=== PATIENT | male | born 1940 | race Caucasian/White ===

== ENCOUNTER 2019-01-02 11:40 | Inpatient (IN) | payer MEDICARE, BC ==
[2019-01-02] MEDS ORDERED: SODIUM CHLORIDE 0.9% 1,000 ML IV STA (12:17)
--- NOTE | 2019-01-02 12:21 | ED ---
General Adult HPI - General Chief complaint: Syncope Stated complaint: Syncope Time Seen by Provider: 01/02/19 11:56 Source: patient, EMS, RN notes reviewed Mode of arrival: EMS Limitations: no limitations - History of Present Illness Initial comments: Patient is a pleasant 78-year-old male presenting to the emergency department following syncopal episode. Patient does not really recall the episode. Patient believes he had one episode yesterday and one today. Patient states he feels okay at this point and does not have any complaints. Patient is overall a poor historian and has difficulty providing significant history. Unclear if history of similar symptoms previously. He should denies chest or back pain. No abdominal pain. No dyspnea. No headache. Patient reported he does live on his own. - Related Data Home Medications Medication Instructions Recorded Confirmed Apixaban [Eliquis] 5 mg PO BID 01/02/19 01/02/19 Atorvastatin [Lipitor] 40 mg PO DAILY 01/02/19 01/02/19 Furosemide [Lasix] 40 mg PO DAILY 01/02/19 01/02/19 Lisinopril 40 mg PO DAILY 01/02/19 01/02/19 Magnesium/Calcium 1 tab PO DAILY 01/02/19 01/02/19 Metoprolol Tartrate [Lopressor] 25 mg PO BID 01/02/19 01/02/19 Potassium Chloride ER [K-Dur 10] 10 meq PO DAILY 01/02/19 01/02/19 Sertraline HCl [Zoloft] 25 mg PO DAILY 01/02/19 01/02/19 Tamsulosin [Flomax] 0.4 mg PO DAILY 01/02/19 01/02/19 hydrALAZINE HCL [Apresoline] 25 mg PO Q8H 01/02/19 01/02/19 Allergies Allergy/AdvReac Type Severity Reaction Status Date / Time No Known Allergies Allergy Verified 01/02/19 15:47 Review of Systems ROS Statement: Those systems with pertinent positive or pertinent negative responses have been documented in the HPI. ROS Other: All systems not noted in ROS Statement are negative. Constitutional: Denies: fever Eyes: Denies: eye pain ENT: Denies: ear pain Respiratory: Denies: cough, dyspnea Cardiovascular: Denies: chest pain Endocrine: Denies: fatigue Gastrointestinal: Denies: abdominal pain Genitourinary: Denies: dysuria Musculoskeletal: Denies: back pain Skin: Denies: rash Neurological: Denies: headache, weakness Past Medical History Past Medical History: Atrial Fibrillation, CVA/TIA, Hypertension History of Any Multi-Drug Resistant Organisms: None Reported Past Surgical History: Unable to Obtain Past Psychological History: No Psychological Hx Reported Smoking Status: Former smoker Past Alcohol Use History: None Reported Past Drug Use History: None Reported General Exam Limitations: no limitations General appearance: alert, in no apparent distress Head exam: Present: other (Mild ecchymosis without bony tenderness inferior orbital region. Mild ecchymosis and soft tissue swelling above the left ear.) Eye exam: Present: normal appearance, PERRL ENT exam: Present: normal oropharynx Neck exam: Present: normal inspection. Absent: tenderness Respiratory exam: Present: normal lung sounds bilaterally. Absent: chest wall tenderness Cardiovascular Exam: Present: regular rate, normal rhythm GI/Abdominal exam: Present: soft. Absent: distended, tenderness, pulsatile mass Extremities exam: Present: normal inspection, full ROM. Absent: tenderness Neurological exam: Present: alert, CN II-XII intact. Absent: motor sensory deficit Expanded Neurological exam: Present: protecting the airway Patient oriented to: Present: person, place. Absent: time Speech: Present: fluid speech Cranial nerves: EOM's Intact: Normal Motor strength exam: RUE: 5, LUE: 5, RLE: 5, LLE: 5 Eye Response: (4) open spontaneously Motor Response: (6) obeys commands Verbal Response: (4) confused conversation Psychiatric exam: Present: normal affect, normal mood Skin exam: Present: other (Ecchymotic areas) Course Vital Signs 01/02/19 01/02/19 01/02/19 11:45 11:46 12:00 Temperature 97 F L Pulse Rate 68 Respiratory 18 Rate Blood Pressure 198/115 198/115 O2 Sat by Pulse 99 95 96 Oximetry 01/02/19 01/02/19 01/02/19 13:00 13:30 15:34 Temperature Pulse Rate 79 79 Respiratory 26 H 18 Rate Blood Pressure 183/122 189/98 161/109 O2 Sat by Pulse 96 98 Oximetry - Reevaluation(s) Reevaluation #1: 01/02/19 15:41 Patient reevaluated and resting comfortably in bed. Additional history not available from sister. She states patient does have history of hypertension and atrial fibrillation. Patient is on Eliquis for that. 01/02/19 17:21 Patient was reevaluated multiple times. Multiple attempts at IV. Central line attempt is concerning secondary to patient being stable and Eliquis. We will attempt peripheral IV with ultrasound. 01/02/19 17:21 Case was discussed in detail with Dr. Flores, who will admit 01/02/19 17:23 Patient does not meet sepsis criteria EKG Findings - EKG Comments: EKG Findings:: Irregular no complex rhythm with a rate of 87. NH 126. QRS 98. QT 398. QTC 470. Normal axis. Septal Q waves. No acute ST change. Medical Decision Making - Lab Data Result diagrams: 01/02/19 13:41 01/02/19 13:41 Lab Results 01/02/19 01/02/19 01/02/19 Range/Units 13:41 13:41 13:41 WBC 8.6 (3.8-10.6) k/uL RBC 4.43 (4.30-5.90) m/uL Hgb 11.3 L (13.0-17.5) gm/dL Hct 37.2 L (39.0-53.0) % MCV 84.1 (80.0-100.0) fL MCH 25.5 (25.0-35.0) pg MCHC 30.3 L (31.0-37.0) g/dL RDW 15.5 (11.5-15.5) % Plt Count 183 (150-450) k/uL Neutrophils % 74 % Lymphocytes % 14 % Monocytes % 8 % Eosinophils % 1 % Basophils % 1 % Neutrophils # 6.3 (1.3-7.7) k/uL Lymphocytes # 1.2 (1.0-4.8) k/uL Monocytes # 0.6 (0-1.0) k/uL Eosinophils # 0.1 (0-0.7) k/uL Basophils # 0.1 (0-0.2) k/uL Hypochromasia Marked Poikilocytosis Slight PT 15.4 H (9.0-12.0) sec INR 1.5 H (<1.2) APTT 27.9 (22.0-30.0) sec Sodium 143 (137-145) mmol/L Potassium 4.0 (3.5-5.1) mmol/L Chloride 108 H (98-107) mmol/L Carbon Dioxide 23 (22-30) mmol/L Anion Gap 12 mmol/L BUN 31 H (9-20) mg/dL Creatinine 1.00 (0.66-1.25) mg/dL Est GFR (CKD-EPI)AfAm 83 (>60 ml/min/1.73 sqM) Est GFR (CKD-EPI)NonAf 72 (>60 ml/min/1.73 sqM) Glucose 98 (74-99) mg/dL Calcium 9.3 (8.4-10.2) mg/dL Magnesium 2.2 (1.6-2.3) mg/dL Total Bilirubin 1.2 (0.2-1.3) mg/dL AST 35 (17-59) U/L ALT 30 (21-72) U/L Alkaline Phosphatase 99 (38-126) U/L Troponin I (0.000-0.034) ng/mL Total Protein 7.1 (6.3-8.2) g/dL Albumin 4.0 (3.5-5.0) g/dL Urine Color Urine Appearance (Clear) Urine pH (5.0-8.0) Ur Specific [place] (1.001-1.035) Urine Protein (Negative) Urine Glucose (UA) (Negative) Urine Ketones (Negative) Urine Blood (Negative) Urine Nitrite (Negative) Urine Bilirubin (Negative) Urine Urobilinogen (<2.0) mg/dL Ur Leukocyte Esterase (Negative) Urine RBC (0-5) /hpf Urine WBC (0-5) /hpf Hyaline Casts (0-2) /lpf Urine Mucus (None) /hpf 01/02/19 01/02/19 Range/Units 13:41 15:03 WBC (3.8-10.6) k/uL RBC (4.30-5.90) m/uL Hgb (13.0-17.5) gm/dL Hct (39.0-53.0) % MCV (80.0-100.0) fL MCH (25.0-35.0) pg MCHC (31.0-37.0) g/dL RDW (11.5-15.5) % Plt Count (150-450) k/uL Neutrophils % % Lymphocytes % % Monocytes % % Eosinophils % % Basophils % % Neutrophils # (1.3-7.7) k/uL Lymphocytes # (1.0-4.8) k/uL Monocytes # (0-1.0) k/uL Eosinophils # (0-0.7) k/uL Basophils # (0-0.2) k/uL Hypochromasia Poikilocytosis PT (9.0-12.0) sec INR (<1.2) APTT (22.0-30.0) sec Sodium (137-145) mmol/L Potassium (3.5-5.1) mmol/L Chloride (98-107) mmol/L Carbon Dioxide (22-30) mmol/L Anion Gap mmol/L BUN (9-20) mg/dL Creatinine (0.66-1.25) mg/dL Est GFR (CKD-EPI)AfAm (>60 ml/min/1.73 sqM) Est GFR (CKD-EPI)NonAf (>60 ml/min/1.73 sqM) Glucose (74-99) mg/dL Calcium (8.4-10.2) mg/dL Magnesium (1.6-2.3) mg/dL Total Bilirubin (0.2-1.3) mg/dL AST (17-59) U/L ALT (21-72) U/L Alkaline Phosphatase (38-126) U/L Troponin I 0.021 (0.000-0.034) ng/mL Total Protein (6.3-8.2) g/dL Albumin (3.5-5.0) g/dL Urine Color Yellow Urine Appearance Clear (Clear) Urine pH 5.5 (5.0-8.0) Ur Specific [place] 1.019 (1.001-1.035) Urine Protein 1+ H (Negative) Urine Glucose (UA) Negative (Negative) Urine Ketones Negative (Negative) Urine Blood Negative (Negative) Urine Nitrite Negative (Negative) Urine Bilirubin Negative (Negative) Urine Urobilinogen <2.0 (<2.0) mg/dL Ur Leukocyte Esterase Trace H (Negative) Urine RBC 3 (0-5) /hpf Urine WBC 8 H (0-5) /hpf Hyaline Casts 71 H (0-2) /lpf Urine Mucus Few H (None) /hpf - Radiology Data Radiology results: report reviewed (Computed tomography scan the brain reveals no acute process. Computed tomography scan of the spine has some concern for pleural effusion.), image reviewed (Chest x-ray shows possible left lower lobe infiltrate) Disposition Clinical Impression: Syncope, Hypertension, Pneumonia Disposition: ADMITTED IP TO THIS HOSP Is patient prescribed a controlled substance at d/c from ED?: No Referrals: Yohannes Meza DO [Primary Care Provider] - 1-2 days
--- NOTE | 2019-01-02 13:22 | CT ---
EXAMINATION TYPE: CT brain radha chua DATE OF EXAM: 01/02/2019 COMPARISON: NONE HISTORY: Fall CT DLP: 1307.8 mGycm Automated exposure control for dose reduction was used. TECHNIQUE: CT scan of the head and cervical spine are performed without contrast. FINDINGS: BRAIN: There are generalized changes of sulcal prominence and ventriculomegaly, compatible with atrop hic change. There is diffuse periventricular white matter lucency, compatible with chronic white nohemy er ischemic change. There are been bilateral occipital infarcts. There is no acute focal lesion, mass effect or midline shift. I do not see evidence of intracranial blood. There is chronic mucoperiosteal thickening involving the maxillary and ethmoidal sinuses bilaterally. The mastoid air cells are clear. The bony calvarium is intact. IMPRESSION: 1. NO ACUTE INTRACRANIAL ABNORMALITY. 2. BILATERAL OCCIPITAL INFARCTS WHICH ARE OLD. 3. ATROPHIC CHANGE. 4. CHRONIC WHITE MATTER ISCHEMIC CHANGE. 5. ETHMOIDAL AND MAXILLARY SINUS MUCOSAL DISEASE. THERE ARE BILATERAL PLEURAL EFFUSIONS. VISUALIZED P ORTIONS OF THE LUNGS ARE CLEAR. PREVERTEBRAL SOFT TISSUES ARE NORMAL. THERE IS A MILD REVERSAL OF THE NORMAL CERVICAL LORDOSIS. ALIGNMENT IS NORMAL. ATLANTOAXIAL RELATIONS HIPS ARE NORMAL. 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 THERE IS DI FFUSE UNCOVERTEBRAL JOINT DISEASE. THERE IS FACET ARTHROPATHY ON THE LEFT AT C2-3 AND TO A LESSER EXT ENT BILATERALLY AT C3-4 AND C4-5 WELL C5-6 AND ON THE LEFT AND C6-7. NO DEFINITE PROTRUSION IS SEEN. NO FRACTURE IS IDENTIFIED. CERVICAL SPINE:Cervical spine is visualized in its entirety from C1 through upper thoracic levels and demonstrates satisfactory alignment without evidence of acute fracture or dislocation. Prevertebral soft tissue appears within normal limits. The C1-C2 articulation is unremarkable. IMPRESSION: 1. NO ACUTE OSSEOUS LESION. 2. MODERATE DEGENERATIVE CHANGE. 3. BILATERAL PLEURAL EFFUSIONS, GREATER ON THE RIGHT THAN THE LEFT.
[2019-01-02 14:10] LABS: Basophils # (A) 0.1 k/uL (0-0.2); Basophils % (A) 1 %; Eosinophils # (A) 0.1 k/uL (0-0.7); Eosinophils % (A) 1 %; HCT 37.2 % (39.0-53.0); HGB 11.3 gm/dL (13.0-17.5); Hypochromasia Marked; INR 1.5 (<1.2); Lymphocytes # (A) 1.2 k/uL (1.0-4.8); Lymphocytes % (A) 14 %; MCH 25.5 pg (25.0-35.0); MCHC 30.3 g/dL (31.0-37.0); MCV 84.1 fL (80.0-100.0); Mean Platelet Volume 6.4; Monocytes # (A) 0.6 k/uL (0-1.0); Monocytes % (A) 8 %; Neutrophils # (A) 6.3 k/uL (1.3-7.7); Neutrophils % (A) 74 %; Partial Thromboplastin Time 27.9 sec (22.0-30.0); Platelet Count 183 k/uL (150-450); Poikilocytosis Slight; Prothrombin Time 15.4 sec (9.0-12.0); RBC 4.43 m/uL (4.30-5.90); RDW 15.5 % (11.5-15.5); WBC 8.6 k/uL (3.8-10.6)
[2019-01-02 14:13] LABS: Calcium 9.3 mg/dL (8.4-10.2); Magnesium 2.2 mg/dL (1.6-2.3); Total Bilirubin 1.2 mg/dL (0.2-1.3); Total Protein 7.1 g/dL (6.3-8.2)
--- NOTE | 2019-01-02 14:27 | XR ---
EXAMINATION TYPE: XR chest 2V DATE OF EXAM: 01/02/2019 COMPARISON: 04/14/2012 HISTORY: Fall. Nausea and vomiting TECHNIQUE: Frontal and lateral views of the chest are obtained. FINDINGS: Heart is enlarged. There is some blunting of the posterior costophrenic angles. There is a irspace infiltrate left lower lobe. There is no gross heart failure. There is old right clavicle heal ed fracture. IMPRESSION: Small pleural effusions. There is new left lower lobe pneumonia compared to old exam. No obvious heart failure.
[2019-01-02 15:21] LABS: Appearance,Urine Clear (Clear); Bilirubin,Urine Negative (Negative); Blood,Urine Negative (Negative); Color,Urine Yellow; Glucose,Urine (UA) Negative (Negative); Hyaline Casts,Urine 71 /lpf (0-2); Ketones,Urine Negative (Negative); Leukocyte Esterase,Urine Trace (Negative); Mucus,Urine Few /hpf; Nitrite,Urine Negative (Negative); PH, Urine 5.5 (5.0-8.0); Protein,Urine 1+ (Negative); RBC,Urine 3 /hpf (0-5); Specific Gravity,Urine 1.019 (1.001-1.035); Urobilinogen,Urine <2.0 mg/dL (<2.0); WBC,Urine 8 /hpf (0-5)
[2019-01-02] MEDS ORDERED: FUROSEMIDE 40 MG TAB PO STA (15:40)
[2019-01-02] MEDS ORDERED: cloNIDine HCL 0.1 MG TAB PO STA (15:41)
[2019-01-02] MEDS ORDERED: PNEUMONIA PROTOCOL UTILIZED 1 EACH MISC PO PRN (17:23)
[2019-01-02] MEDS ORDERED: AZITHROMYCIN 500 MG in SODIUM CHLORIDE 0.9% 250 ML IVPB STA (17:23)
[2019-01-02] MEDS ORDERED: NALOXONE 0.4 MG/ML 1 ML VIAL IV PRN (17:23)
[2019-01-02] MEDS ORDERED: FUROSEMIDE 40 MG TAB PO SCH (17:30)
[2019-01-02] MEDS: SODIUM CHLORIDE 0.9% 1,000 ML IV SCH (18:11)
[2019-01-02] MEDS: ENALAPRILAT 1.25 MG/ML 1 ML VIAL IVP PRN (18:43)
--- NOTE | 2019-01-02 18:59 | P.HPIM ---
History of Present Illness H&P Date: 01/02/19 Chief Complaint: Syncope Patient is a 78-year-old male with a known history of chronic atrial fibrillation on anticoagulation with a liquid is, COPD, hypertension, history of CVA 2 recently in 2019, history of carotid endarterectomy, currently at home by himself was brought to the hospital due to syncopal episode. According to his , patient was found on the floor twice, last night and this morning. Apparently patient has been on the floor for few hours. Patient denied any complaints of head injury or pain currently. Patient is somewhat poor historian. Denied any fever or chills. No cough is from production. No recent illnesses. Patient's is his caregiver. Denied any nausea vomiting or abdominal pain. No headache or dizziness or lightheadedness. Blood pressure 198/115 HR 68 on admission. Chest x-ray showed small pleural effusions. There is new left lower lobe pneumonia compared to oral exam. No obvious heart failure. EKG showed atrial fibrillation with controlled heart rate CT head showed no acute intracranial abnormality. Bilateral occipital infarcts which are old. Atrophic change. Chronic white matter ischemic change. Ethmoid and maxillary sinus mucosal disease. There are bilateral pleural effusions. Visualized portions of the lungs are clear. CT cervical spine showed no acute osseous lesion. Moderate degenerative change. Bilateral pleural effusions, greater on the right Review of Systems Constitutional: Patient denies any fever or chills . No generalized weakness or weight loss. Abdomen: Patient denied nausea vomiting and diarrhea and abdominal pain. Cardiovascular: Patient denies any chest pain or short of breath no palpitations. Respiratory: patient denied any cough is from production. No shortness of breath Neurologic: Patient denied any numbness or tingling headache. Musculoskeletal: Patient denies any complaints of joint swelling or deformity. Complete review of systems could not be obtained from the patient. Past Medical History Past Medical History: Atrial Fibrillation, CVA/TIA, Hypertension History of Any Multi-Drug Resistant Organisms: None Reported Past Surgical History: Unable to Obtain Past Psychological History: No Psychological Hx Reported Smoking Status: Former smoker Past Alcohol Use History: None Reported Past Drug Use History: None Reported Medications and Allergies Home Medications Medication Instructions Recorded Confirmed Type Apixaban [Eliquis] 5 mg PO BID 01/02/19 01/02/19 History Atorvastatin [Lipitor] 40 mg PO DAILY 01/02/19 01/02/19 History Furosemide [Lasix] 40 mg PO DAILY 01/02/19 01/02/19 History Lisinopril 40 mg PO DAILY 01/02/19 01/02/19 History Magnesium/Calcium 1 tab PO DAILY 01/02/19 01/02/19 History Metoprolol Tartrate [Lopressor] 25 mg PO BID 01/02/19 01/02/19 History Potassium Chloride ER [K-Dur 10] 10 meq PO DAILY 01/02/19 01/02/19 History Sertraline HCl [Zoloft] 25 mg PO DAILY 01/02/19 01/02/19 History Tamsulosin [Flomax] 0.4 mg PO DAILY 01/02/19 01/02/19 History hydrALAZINE HCL [Apresoline] 25 mg PO Q8H 01/02/19 01/02/19 History Allergies Allergy/AdvReac Type Severity Reaction Status Date / Time No Known Allergies Allergy Verified 01/02/19 15:47 Physical Exam Vitals: Vital Signs Temp Pulse Resp BP Pulse Ox 01/02/19 18:19 70 18 185/109 98 01/02/19 17:00 70 19 173/126 96 01/02/19 16:00 76 25 H 201/103 99 01/02/19 15:34 79 18 161/109 98 01/02/19 13:30 79 26 H 189/98 96 01/02/19 13:00 183/122 01/02/19 12:00 198/115 96 01/02/19 11:46 97 F L 68 18 198/115 95 01/02/19 11:45 99 Intake and Output 01/02/19 01/02/19 01/02/19 06:59 14:59 22:59 Other: Weight 79.379 kg PHYSICAL EXAMINATION: Patient is lying in the bed comfortably, no acute distress, awake alert and oriented. Mildly confused. HEENT: Normocephalic. Neck is supple. Pupils reactive. Nostrils clear. Oral cavity is moist. Ears reveal no drainage. Neck reveals no JVD, carotid bruits, or thyromegaly. CHEST EXAMINATION: Trachea is central. Symmetrical expansion. Bibasilar diminished air entry and crackles. No wheezing. CARDIAC: Normal S1, S2 with no gallops. Systolic murmur. Irregularly irregular rhythm. ABDOMEN: Soft. Bowel sounds normal. No organomegaly. No abdominal bruits. Extremities: 3+ bilateral pitting edema. No clubbing or cyanosis Neurologically awake, alert, oriented x2-3. Able to move extremities while in bed.. Mild cognitive impairment. Skin: No rash or skin lesions. Psychiatric: Coperative. Nonsuicidal Musculoskeletal: No joint swelling or deformity. Normal range of motion. Results CBC & Chem 7: 01/02/19 13:41 01/02/19 13:41 Labs: Abnormal Lab Results - Last 24 Hours (Table) 01/02/19 01/02/19 01/02/19 Range/Units 13:41 13:41 13:41 Hgb 11.3 L (13.0-17.5) gm/dL Hct 37.2 L (39.0-53.0) % MCHC 30.3 L (31.0-37.0) g/dL PT 15.4 H (9.0-12.0) sec INR 1.5 H (<1.2) Chloride 108 H (98-107) mmol/L BUN 31 H (9-20) mg/dL Urine Protein (Negative) Ur Leukocyte Esterase (Negative) Urine WBC (0-5) /hpf Hyaline Casts (0-2) /lpf Urine Mucus (None) /hpf 01/02/19 Range/Units 15:03 Hgb (13.0-17.5) gm/dL Hct (39.0-53.0) % MCHC (31.0-37.0) g/dL PT (9.0-12.0) sec INR (<1.2) Chloride (98-107) mmol/L BUN (9-20) mg/dL Urine Protein 1+ H (Negative) Ur Leukocyte Esterase Trace H (Negative) Urine WBC 8 H (0-5) /hpf Hyaline Casts 71 H (0-2) /lpf Urine Mucus Few H (None) /hpf Thrombosis Risk Factor Assmnt - DVT/VTE Prophylaxis DVT/VTE Prophylaxis: Pharmacologic Prophylaxis ordered Assessment and Plan Assessment: Acute syncopal episode. Patient was found on the floor. Likely due to infection, uncontrolled HTN versus arrhythmia. Acute left lower lobe pneumonia Acute on chronic CHF. Ejection fraction unknown. Chronic atrial fibrillation on anticoagulation with eliquis. Hypertensive urgency on admission History of recent CVA 2 in 2019 COPD stable Previous history of smoking Plan: Patient will be continued on antibiotics in the form of ceftriaxone and azithromycin. We will repeat chest x-ray tomorrow. Obtain BNP and CPK level. Continue with IV diuresis with Lasix 40 mg twice daily. Monitor renal function. Continue with telemetry monitoring. Initial troponin negative. Cardiology will be consulted. Continue with home medications including metoprolol, lisinopril and hydralazine and statins. PTOT and further recommendations based on the clinical course. Prognosis is guarded. Time with Patient: Greater than 30
[2019-01-02] MEDS: LISINOPRIL 20 MG TAB PO SCH (20:20)
[2019-01-02] MEDS: FUROSEMIDE 10 MG/ML 4 ML VIAL IV SCH (20:20)
[2019-01-02] MEDS: APIXABAN 5 MG TAB PO SCH (20:20)
[2019-01-02] MEDS: hydrALAZINE HCL 25 MG TAB PO SCH (20:20)
[2019-01-02] MEDS: METOPROLOL TARTRATE 25 MG TAB PO SCH (20:20)
[2019-01-03] MEDS: hydrALAZINE HCL 25 MG TAB PO SCH ×4 (01:37→23:11)
[2019-01-03] MEDS: ENALAPRILAT 1.25 MG/ML 1 ML VIAL IVP PRN (03:06)
[2019-01-03 06:30] LABS: Basophils % (A) 0 %; Eosinophils # (A) 0.1 k/uL (0-0.7); Eosinophils % (A) 1 %; HGB 10.1 gm/dL (13.0-17.5); Hypochromasia Marked; Lymphocytes # (A) 1.3 k/uL (1.0-4.8); Lymphocytes % (A) 12 %; MCH 25.6 pg (25.0-35.0); MCHC 31.5 g/dL (31.0-37.0); MCV 81.5 fL (80.0-100.0); Mean Platelet Volume 6.7; Monocytes # (A) 0.7 k/uL (0-1.0); Monocytes % (A) 7 %; Neutrophils # (A) 8.2 k/uL (1.3-7.7); Neutrophils % (A) 78 %; Platelet Count 188 k/uL (150-450); Poikilocytosis Slight; RBC 3.93 m/uL (4.30-5.90); RDW 15.7 % (11.5-15.5); WBC 10.5 k/uL (3.8-10.6)
[2019-01-03 06:45] LABS: African American GFR (CKD) >90 (>60 ml/min/1.73 sqM); Anion Gap 8 mmol/L; Blood Urea Nitrogen 29 mg/dL (9-20); Calcium 8.8 mg/dL (8.4-10.2); Carbon Dioxide 25 mmol/L (22-30); Chloride 108 mmol/L (98-107); Glucose 87 mg/dL (74-99); Non-African American GFR(CKD) 81 (>60 ml/min/1.73 sqM); Potassium 3.3 mmol/L (3.5-5.1); Sodium 141 mmol/L (137-145)
[2019-01-03] MEDS ORDERED: POTASSIUM CHLORIDE ER 20 MEQ TAB.ER PO STA (08:37)
--- NOTE | 2019-01-03 08:42 | XR ---
EXAMINATION TYPE: XR chest 1V portable DATE OF EXAM: 01/03/2019 COMPARISON: Prior chest x-ray 01/02/2019 HISTORY: Congestive heart failure TECHNIQUE: Single frontal view of the chest is obtained. FINDINGS: The heart is enlarged. Interstitium and central vascularity are prominent. No pneumothorax . There is basilar increased density with partially obscured right hemidiaphragm. Aorta is dense. The re are overlying cardiac leads. Patient is rotated. IMPRESSION: Correlate for congestive heart failure, interstitial edema, pneumonia, possible effusion
[2019-01-03] MEDS: APIXABAN 5 MG TAB PO SCH ×2 (09:10→19:28)
[2019-01-03] MEDS: TAMSULOSIN 0.4 MG CAP.ER.24H PO SCH (09:10)
[2019-01-03] MEDS: METOPROLOL TARTRATE 25 MG TAB PO SCH (09:10)
[2019-01-03] MEDS: FUROSEMIDE 10 MG/ML 4 ML VIAL IV SCH ×2 (09:17→19:28)
[2019-01-03] MEDS ORDERED: Potassium Replacement Protocol 1 EACH MISC MISCELLANE PRN (10:08)
--- NOTE | 2019-01-03 12:17 | P.CRDCN ---
History of Present Illness Consult date: 01/03/19 Requesting physician: Angeline Fox Consult reason: sycope, congestive heart failure Chief complaint: Syncope History of present illness: This is a 78-year-old gentleman, most of the history was obtained from the medical record, as the patient is confused this morning. According to d ocumentation from [facility] office, the patient follows with Dr. 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 He does have history of recurrent strokes, persistent atrial fibrillation, hypertension, hyperlipidemia, family history of premature coronary artery disease, nicotine dependence, severe pulmonary hypertension, presented to the emergency room following a syncopal episode. Blood pressure on arrival her e was significantly elevated at 198/115. Patient does not recall the episode, therefore no exact details on how it happened. He does have evidence of ecchymosis on his face as well as his right hand. A CAT scan of the head and cervical spine does not reveal any acute intracranial abnormality. Shows bilateral subdural infarcts which are old, atrophic change, chronic white matter ischemic change, ethmoid all and maxillary sinus mucosal disease. Bilateral pleural effusions. Chest x-ray on presentation here showed small pleural effusions. There is a new left lower lobe pneumonia as compared with prior exam. EKG shows atrial fibrillation with controlled ventricular response, occasional PVC. Subsequent EKG performed this morning shows congestive heart failure, interstitial edema, pneumonia and possible effusion. Blood pressure 174/90, heart rate 80, 100% on 2 L of oxygen. White blood cell count 10.5, hemoglobin 10.1, platelet count 188. Sodium 141, potassium 3.3, BUN 29 and creatinine 0.9. Troponins 0.021, 0.04, 0.031. BNP level 24,600. 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 ATTENDING: DR CODY History of Any Multi-Drug Resistant Organisms: None Reported Past Surgical History: Unable to Obtain Additional Past Surgical History / Comment(s): LEFT CAROTID SURGERY- PER SISTER, JESSICA Past Psychological History: No Psychological Hx Reported Smoking Status: Former smoker Past Alcohol Use History: None Reported Past Drug Use History: None Reported Medications and Allergies Home Medications Medication Instructions Recorded Confirmed Type Apixaban [Eliquis] 5 mg PO BID 01/02/19 01/02/19 History Atorvastatin [Lipitor] 40 mg PO DAILY 01/02/19 01/02/19 History Furosemide [Lasix] 40 mg PO DAILY 01/02/19 01/02/19 History Lisinopril 40 mg PO DAILY 01/02/19 01/02/19 History Magnesium/Calcium 1 tab PO DAILY 01/02/19 01/02/19 History Metoprolol Tartrate [Lopressor] 25 mg PO BID 01/02/19 01/02/19 History Potassium Chloride ER [K-Dur 10] 10 meq PO DAILY 01/02/19 01/02/19 History Sertraline HCl [Zoloft] 25 mg PO DAILY 01/02/19 01/02/19 History Tamsulosin [Flomax] 0.4 mg PO DAILY 01/02/19 01/02/19 History hydrALAZINE HCL [Apresoline] 25 mg PO Q8H 01/02/19 01/02/19 History Allergies Allergy/AdvReac Type Severity Reaction Status Date / Time No Known Allergies Allergy Verified 01/02/19 15:47 Physical Exam Vitals: Vital Signs Temp Pulse Pulse Pulse Resp BP BP 01/03/19 08:00 98.2 F 81 20 174/94 01/03/19 03:31 76 17 175/86 01/03/19 00:00 97.7 F 61 17 01/02/19 20:00 97.5 F L 63 16 01/02/19 19:17 76 18 193/95 01/02/19 18:50 72 18 178/96 01/02/19 18:19 70 18 185/109 01/02/19 17:00 70 19 173/126 01/02/19 16:00 76 25 H 201/103 01/02/19 15:34 79 18 161/109 01/02/19 13:30 79 26 H 189/98 01/02/19 13:00 183/122 01/02/19 12:00 198/115 01/02/19 11:46 97 F L 68 18 198/115 01/02/19 11:45 BP Pulse Ox 01/03/19 08:00 100 01/03/19 03:31 100 01/03/19 00:00 135/63 100 01/02/19 20:00 180/97 99 01/02/19 19:17 98 01/02/19 18:50 98 01/02/19 18:19 98 01/02/19 17:00 96 01/02/19 16:00 99 01/02/19 15:34 98 01/02/19 13:30 96 01/02/19 13:00 01/02/19 12:00 96 01/02/19 11:46 95 01/02/19 11:45 99 Intake and Output 01/02/19 01/03/19 01/03/19 22:59 06:59 14:59 Intake Total 50 Output Total 100 100 Balance -100 -100 50 Intake: IV 50 cefTRIAXone 1 gm In 50 Sodium Chloride 0.9% 50 ml @ 100 mls/hr IVPB ONCE STA Rx#:[id number] Output: Urine 100 100 Other: Voiding Method Incontinent # Voids 2 1 # Bowel Movements 1 Weight 83 kg PHYSICAL EXAMINATION: GENERAL: 78-year-old gentleman in no acute distress at the time of my examination HEENT: Head is atraumatic, normocephalic. Some ecchymosis noted beneath the left eye. Pupils equal, round. Sclera anicteric. Conjunctiva are clear. Muc ous membranes of the mouth are moist. Neck is supple. There is no elevated jugular venous pressure. No carotid bruit is heard. HEART EXAMINATION: Heart S1-S2 irregularly irregular a systolic murmur is heard CHEST EXAMINATION: Lungs reveal fine rales to bilateral bases with diminished. She to the bases bilaterally. ABDOMEN: Soft, nontender. Bowel sounds are heard. No organomegaly noted. EXTREMITIES: 2+ peripheral pulses with 1+ evidence of peripheral edema and no calf tenderness noted. Ecchymosis noted on the right hand NEUROLOGIC patient is awake, alert and oriented 1 . . Results 01/03/19 05:25 01/03/19 05:16 Cardiac Enzymes 01/02/19 01/02/19 01/02/19 Range/Units 13:41 13:41 19:23 AST 35 (17-59) U/L Troponin I 0.021 0.024 (0.000-0.034) ng/mL 01/03/19 Range/Units 01:59 AST (17-59) U/L Troponin I 0.031 (0.000-0.034) ng/mL Coagulation 01/02/19 Range/Units 13:41 PT 15.4 H (9.0-12.0) sec APTT 27.9 (22.0-30.0) sec CBC 01/02/19 01/03/19 Range/Units 13:41 05:25 WBC 8.6 10.5 (3.8-10.6) k/uL RBC 4.43 3.93 L (4.30-5.90) m/uL Hgb 11.3 L 10.1 L (13.0-17.5) gm/dL Hct 37.2 L 32.0 L (39.0-53.0) % Plt Count 183 188 (150-450) k/uL Comprehensive Metabolic Panel 01/02/19 01/03/19 Range/Units 13:41 05:16 Sodium 143 141 (137-145) mmol/L Potassium 4.0 3.3 L (3.5-5.1) mmol/L Chloride 108 H 108 H (98-107) mmol/L Carbon Dioxide 23 25 (22-30) mmol/L BUN 31 H 29 H (9-20) mg/dL Creatinine 1.00 0.91 (0.66-1.25) mg/dL Glucose 98 87 (74-99) mg/dL Calcium 9.3 8.8 (8.4-10.2) mg/dL AST 35 (17-59) U/L ALT 30 (21-72) U/L Alkaline Phosphatase 99 (38-126) U/L Total Protein 7.1 (6.3-8.2) g/dL Albumin 4.0 (3.5-5.0) g/dL Current Medications Generic Name Dose Route Start Last Admin Trade Name Freq PRN Reason Stop Dose Admin Apixaban 5 mg 01/02/19 21:00 01/03/19 09:10 Eliquis PO 5 mg BID MIKY Administration Atorvastatin Calcium 40 mg 01/03/19 09:00 Lipitor PO DAILY MIKY Azithromycin 500 mg 01/03/19 12:00 Zithromax PO DAILY MIKY Enalaprilat 1.25 mg 01/02/19 17:27 01/03/19 03:06 Vasotec IVP 1.25 mg Q4HR PRN Administration Blood Pressure - High Furosemide 40 mg 01/02/19 21:00 01/03/19 09:17 Lasix IV 40 mg Q12HR MIKY Administration Hydralazine HCl 25 mg 01/02/19 18:00 01/03/19 09:10 Apresoline PO 25 mg Q8HR MIKY Administration Sodium Chloride 1,000 mls @ 20 mls/hr 01/02/19 17:30 01/02/19 18:11 Saline 0.9% IV 20 mls/hr .Q24H MIKY Administration Ceftriaxone Sodium 1 gm/ 50 mls @ 100 mls/hr 01/03/19 09:00 01/03/19 09:17 Sodium Chloride IVPB 01/06/19 09:01 100 mls/hr Q24HR MIKY Administration Lisinopril 40 mg 01/02/19 17:30 01/02/19 20:20 Zestril PO 40 mg DAILY MIKY Administration Metoprolol Tartrate 25 mg 01/02/19 21:00 01/03/19 09:10 Lopressor PO 25 mg BID MIKY Administration Miscellaneous Information 1 each 01/02/19 17:23 Pneumonia Protocol Utilized PO ONCE PRN Per Protocol Miscellaneous Information 1 each 01/03/19 10:08 Potassium Per Protocol MISCELLANE DAILY PRN Per Protocol Protocol Naloxone HCl 0.2 mg 01/02/19 17:23 Narcan IV Q2M PRN Opioid Reversal Potassium Chloride 10 meq 01/03/19 09:00 K-Dur 10 PO DAILY MIKY Sertraline HCl 25 mg 01/03/19 09:00 Zoloft PO DAILY MIKY Tamsulosin HCl 0.4 mg 01/03/19 09:00 01/03/19 09:10 Flomax PO 0.4 mg DAILY MIKY Administration Intake and Output 01/02/19 01/03/19 01/03/19 22:59 06:59 14:59 Intake Total 50 Output Total 100 100 Balance -100 -100 50 Intake: IV 50 cefTRIAXone 1 gm In 50 Sodium Chloride 0.9% 50 ml @ 100 mls/hr IVPB ONCE STA Rx#:[id number] Output: Urine 100 100 Other: Voiding Method Incontinent # Voids 2 1 # Bowel Movements 1 Weight 83 kg 01/03/19 05:25 01/03/19 05:16 EKG Interpretations (text) EKG shows atrial fibrillation with a controlled ventricular response, occasional PVC Assessment and Plan Plan: Assessment and plan #1 syncope, rule out cardiac causes #2 congestive heart failure, systolic acute on chronic. Patient underwent an echocardiogram with Doppler study in August of this year at [facility] which showed an ejection fraction of 40-45%. #3 chronic persistent atrial fibrillation on Eliquis for anticoagulation #4 hypertensive urgency on admission, blood pressure was 198/115 #5 history of hypertension #6 hyperlipidemia #7 prior CVAs #8 possible acute left lower lobe pneumonia Plan We will repeat an echocardiogram with Doppler study. Check orthostatic heart rate and blood pressure every shift and continue to monitor for any significant tachycardia or bradycardia arrhythmias. Continue Lipitor, IV Lasix, hydra lazine, lisinopril, increase metoprolol to 50 mg by mouth twice a day, further recommendations to follow. DNP note has been reviewed, I agree with a documented findings and plan of care. Patient was seen and examined.
[2019-01-03] MEDS: LISINOPRIL 20 MG TAB PO SCH (12:48)
[2019-01-03] MEDS: ATORVASTATIN 40 MG TAB PO SCH (12:48)
[2019-01-03] MEDS: SERTRALINE 25 MG TAB PO SCH (12:48)
[2019-01-03] MEDS: POTASSIUM CHLORIDE ER 10 MEQ TAB.ER.PRT PO SCH (12:48)
[2019-01-03] MEDS: AZITHROMYCIN 500 MG TAB PO SCH (12:49)
[2019-01-03] MEDS ORDERED: POTASSIUM CHLORIDE ER 20 MEQ TAB.ER PO SCH (17:00)
--- NOTE | 2019-01-03 17:04 | P.PN ---
Subjective Progress Note Date: 01/03/19 Principal diagnosis: Patient is a 78-year-old male with a known history of chronic atrial fibrillation on anticoagulation with a liquid is, COPD, hypertension, history of CVA 2 recently in 2019, history of carotid endarterectomy, currently at home by himself was brought to the hospital due to syncopal episode. According to his , patient was found on the floor twice, last night and this morning. Apparently patient has been on the floor for few hours. Patient denied any complaints of head injury or pain currently. Patient is somewhat poor historian. Denied any fever or chills. No cough is from production. No recent illnesses. Patient's is his caregiver. Denied any nausea vomiting or abdominal pain. No headache or dizziness or lightheadedness. Blood pressure 198/115 HR 68 on admission. Chest x-ray showed small pleural effusions. There is new left lower lobe pneumonia compared to oral exam. No obvious heart failure. EKG showed atrial fibrillation with controlled heart rate CT head showed no acute intracranial abnormality. Bilateral occipital infarcts which are old. Atrophic change. Chronic white matter ischemic change. Ethmoid and maxillary sinus mucosal disease. There are bilateral pleural effusions. Visualized portions of the lungs are clear. CT cervical spine showed no acute osseous lesion. Moderate degenerative change. Bilateral pleural effusions, greater on the right 01/03/2019 Patient is sitting up in the chair sleeping and somewhat arousable. Patient answers questions with yes and no but doesn't remain awake enough to have a conversation. No acute overnight issues. Per nursing staff this is his baseline. Potassium today was 3.3 and was replaced with a repeat potassium 3.6. Will continue to monitor closely. Cardiology is following and patient is to undergo an echo that is currently pending at this time. Will await report. Speech pathology is following as well and recommending a modified barium swallow that she will do in the morning. Case management and pediatric social worker following for possible placement upon discharge. Guarded prognosis. Objective - Vital Signs Vital signs: Vital Signs Temp 97.7 F 01/03/19 12:00 Pulse 65 01/03/19 12:00 Resp 20 01/03/19 12:00 BP 156/76 01/03/19 12:00 Pulse Ox 99 01/03/19 12:00 Intake & Output 01/02/19 01/03/19 01/03/19 18:59 06:59 18:59 Intake Total 286 Output Total 200 Balance -200 286 Weight 79.379 kg 83 kg Intake: IV 50 cefTRIAXone 1 gm In 50 Sodium Chloride 0.9% 50 ml @ 100 mls/hr IVPB ONCE STA Rx#:[id number] Oral 236 Output: Urine 200 Other: Voiding Method Incontinent # Voids 2 1 # Bowel Movements 1 - Exam Patient is lying in the chair comfortably, no acute distress, asleep but arousable, alert and oriented x1-2. Mildly confused. HEENT: Normocephalic. Neck is supple. Pupils reactive. Nostrils clear. Oral cavity is moist. Ears reveal no drainage. Neck reveals no JVD, carotid bruits, or thyromegaly. CHEST EXAMINATION: Trachea is central. Symmetrical expansion. Bibasilar diminished air entry and crackles. No wheezing. CARDIAC: Normal S1, S2 with no gallops. Systolic murmur. Irregularly irregular rhythm. ABDOMEN: Soft. Bowel sounds normal. No organomegaly. No abdominal bruits. Extremities: 3+ bilateral pitting edema. No clubbing or cyanosis Neurologically awake, alert, oriented x2-3. Able to move extremities while in bed.. Mild cognitive impairment. Skin: No rash or skin lesions. Psychiatric: Cooperative. Non-suicidal Musculoskeletal: No joint swelling or deformity. Normal range of motion. - Labs CBC & Chem 7: 01/03/19 05:25 01/03/19 15:49 Labs: Abnormal Lab Results - Last 24 Hours (Table) 01/02/19 01/02/19 01/03/19 Range/Units 15:03 19:23 05:16 RBC (4.30-5.90) m/uL Hgb (13.0-17.5) gm/dL Hct (39.0-53.0) % RDW (11.5-15.5) % Neutrophils # (1.3-7.7) k/uL Potassium 3.3 L (3.5-5.1) mmol/L Chloride 108 H (98-107) mmol/L BUN 29 H (9-20) mg/dL Creatine Kinase 29 L (55-170) U/L Urine Protein 1+ H (Negative) Ur Leukocyte Esterase Trace H (Negative) Urine WBC 8 H (0-5) /hpf Hyaline Casts 71 H (0-2) /lpf Urine Mucus Few H (None) /hpf 01/03/19 Range/Units 05:25 RBC 3.93 L (4.30-5.90) m/uL Hgb 10.1 L (13.0-17.5) gm/dL Hct 32.0 L (39.0-53.0) % RDW 15.7 H (11.5-15.5) % Neutrophils # 8.2 H (1.3-7.7) k/uL Potassium (3.5-5.1) mmol/L Chloride (98-107) mmol/L BUN (9-20) mg/dL Creatine Kinase (55-170) U/L Urine Protein (Negative) Ur Leukocyte Esterase (Negative) Urine WBC (0-5) /hpf Hyaline Casts (0-2) /lpf Urine Mucus (None) /hpf Assessment and Plan Assessment: Acute syncopal episode. Patient was found on the floor. Likely due to infection, uncontrolled HTN versus arrhythmia. Acute left lower lobe pneumonia Acute on chronic CHF. Ejection fraction unknown. Chronic atrial fibrillation on anticoagulation with eliquis. Hypertensive urgency on admission History of recent CVA 2 in 2019 COPD stable Previous history of smoking Plan: Patient will be continued on antibiotics in the form of ceftriaxone and azithromycin. Repeat chest x-ray today shows an enlarged heart, interstitial and central vascularity are prominent and to correlate for congestive heart failure, interstitial edema, pneumonia, possible effusion. We'll continue with IV Lasix at this time and repeat a.m. labs. Creatinine today is 0.91 . Potassium was replaced today and is currently 3.6. Awaiting cardiology consult. PT/OT following and appreciate recommendations for discharge planning. Further recommendations to follow. Prognosis is guarded.
[2019-01-03] MEDS: SODIUM CHLORIDE 0.9% 1,000 ML IV SCH (17:23)
[2019-01-03] MEDS: METOPROLOL TARTRATE 50 MG TAB PO SCH (19:28)
[2019-01-04] MEDS: POTASSIUM CHLORIDE ER 20 MEQ TAB.ER PO SCH ×2 (06:35→08:13)
[2019-01-04] MEDS: FUROSEMIDE 10 MG/ML 4 ML VIAL IV SCH ×2 (08:13→22:43)
[2019-01-04] MEDS: APIXABAN 5 MG TAB PO SCH ×2 (08:13→22:26)
[2019-01-04] MEDS: SERTRALINE 25 MG TAB PO SCH (08:13)
[2019-01-04] MEDS: AZITHROMYCIN 500 MG TAB PO SCH (08:13)
[2019-01-04] MEDS: METOPROLOL TARTRATE 50 MG TAB PO SCH ×2 (08:13→22:26)
[2019-01-04] MEDS: POTASSIUM CHLORIDE ER 10 MEQ TAB.ER.PRT PO SCH (08:13)
[2019-01-04] MEDS: TAMSULOSIN 0.4 MG CAP.ER.24H PO SCH (08:14)
[2019-01-04] MEDS: LISINOPRIL 20 MG TAB PO SCH (08:14)
[2019-01-04] MEDS: hydrALAZINE HCL 25 MG TAB PO SCH ×2 (08:14→16:36)
[2019-01-04] MEDS: ATORVASTATIN 40 MG TAB PO SCH (08:14)
[2019-01-04] MEDS ORDERED: POTASSIUM CHLORIDE ER 20 MEQ TAB.ER PO STA (09:04)
--- NOTE | 2019-01-04 11:31 | ECHOF ---
Referral Reason:syncope MEASUREMENTS -------- HEIGHT: 172.7 cm WEIGHT: 82.6 kg BP: 174/94 RVIDd: 3.1 cm (< 3.3) IVSd: 1.1 cm (0.6 - 1.1) LVIDd: 4.9 cm (3.9 - 5.3) LVPWd: 1.2 cm (0.6 - 1.1) IVSs: 1.5 cm LVIDs: 4.2 cm LVPWs: 1.0 cm LAESV Index (A-L): 61.25 ml/m Ao Diam: 2.7 cm (2.0 - 3.7) AV Cusp: 1.7 cm (1.5 - 2.6) LA Diam: 4.9 cm (2.7 - 3.8) MV EXCURSION: 17.701 mm (> 18.000) MV EF SLOPE: 36 mm/s (70 - 150) EPSS: 1.2 cm AR PHT: 441 ms RAP: 5.00 mmHg RVSP: 64.89 mmHg TAPSE: 13.64 mm FINDINGS -------- Atrial fibrillation. This was a technically good study. The left ventricular size is normal. There is mild concentric left ventricular hypertrophy. Overa ll left ventricular systolic function is moderate-severely impaired with, an EF between 30 - 35 %. Left ventricular fillimg pressure cannot be estimated due to Atrial fibrillation. The right ventricle is normal in size. The right ventricular systolic function is mildly impaired. LA is severely dilated >40 ml/m2 The right atrium is mildly enlarged. Interatrial and interventricular septum intact. Aortic valve is trileaflet and is mildly thickened. There is mild aortic valve sclerosis. There i s mild aortic regurgitation. The mitral valve is normal. The mitral valve leaflets are mildly thickened. Mild mitral annular c alcification present. Moderate mitral regurgitation is present. The tricuspid valve appears structurally normal. Severe tricuspid regurgitation present. There is moderate to severe pulmonary hypertension. The right ventricular systolic pressure, as measured by Doppler, is 64.89mmHg. There is no pulmonic regurgitation present. The aortic root size is normal. IVC Not well visulized. There is a trivial pericardial effusion present. Large Pleural Effusion. CONCLUSIONS -------- 1. Atrial fibrillation. 2. This was a technically good study. 3. The left ventricular size is normal. 4. There is mild concentric left ventricular hypertrophy. 5. Overall left ventricular systolic function is moderate-severely impaired with, an EF between 30 - 35 %. 6. Left ventricular fillimg pressure cannot be estimated due to Atrial fibrillation. 7. The right ventricle is normal in size. 8. The right ventricular systolic function is mildly impaired. 9. LA is severely dilated >40 ml/m2 10. The right atrium is mildly enlarged. 11. Interatrial and interventricular septum intact. 12. Aortic valve is trileaflet and is mildly thickened. 13. There is mild aortic valve sclerosis. 14. There is mild aortic regurgitation. 15. The mitral valve is normal. 16. The mitral valve leaflets are mildly thickened. 17. Mild mitral annular calcification present. 18. Moderate mitral regurgitation is present. 19. The tricuspid valve appears structurally normal. 20. Severe tricuspid regurgitation present. 21. There is moderate to severe pulmonary hypertension. 22. The right ventricular systolic pressure, as measured by Doppler, is 64.89mmHg. 23. There is no pulmonic regurgitation present. 24. The aortic root size is normal. 25. IVC Not well visulized. 26. There is a trivial pericardial effusion present. 27. Large Pleural Effusion. HEALTH AND SAFETY COORDINATOR: Carla Kellogg RDCS
--- NOTE | 2019-01-04 12:40 | FL ---
Modified barium swallow. HISTORY: Rule out aspiration Modified barium swallow was performed with the department of speech pathology. The patient was prese nted with various consistencies of barium. There is no evidence for aspiration. Minimal penetration noted with thin liquid barium. Vallecular an d piriform sinus residuals noted. Full report is to follow from the department of speech pathology. Impression: No evidence for aspiration.
--- NOTE | 2019-01-04 15:22 | P.PN ---
Subjective Progress Note Date: 01/04/19 This is a 78-year-old gentleman, most of the history was obtained from the medical record, as the patient is confused this morning. 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 He does have history of recurrent strokes, persistent atrial fibrillation, hypertension, hyperlipidemia, family history of premature coronary artery disease, nicotine dependence, severe pulmonary hypertension, presented to the emergency room following a syncopal episode. Blood pressure on arrival here was significantly elevated at 198/115. Patient does not recall the episode, therefore no exact details on how it happened. He does have evidence of ecchymosis on his face as well as his right hand. A CAT scan of the head and cervical spine does not reveal any acute intracranial abnormality. Shows bilateral subdural infarcts which are old, atrophic change, chronic white matter ischemic change, ethmoid all and maxillary sinus mucosal disease. Bilateral pleural effusions. Chest x-ray on presentation here showed small pleural effusions. There is a new left lower lobe pneumonia as compared with prior exam. EKG shows atrial fibrillation with controlled ventricular response, occasional PVC. Subsequent EKG performed this morning shows congestive heart failure, interstitial edema, pneumonia and possible effusion. Blood pressure 174/90, heart rate 80, 100% on 2 L of oxygen. White blood cell count 10.5, hemoglobin 10.1, platelet count 188. Sodium 141, potassium 3.3, BUN 29 and creatinine 0.9. Troponins 0.021, 0.04, 0.031. BNP level 24,600. 01/04/2019 Patient was seen and examined today, sitting up in bed, no complaints. Echo cardiogram with Doppler study revealed an ejection fraction of 30-35%. Severe tricuspid regurg, moderate to severe pulmonary hypertension. Underwent a swallow test today that did not show any evidence of aspiration. Blood pressure improved today, 132/60 with a heart rate in the 70s, 95% on room air. Potassium is 3.4 today which we will replace. Objective - Vital Signs Vital signs: Vital Signs Temp 98.2 F 01/04/19 12:00 Pulse 76 01/04/19 12:00 Resp 18 01/04/19 12:00 BP 133/62 01/04/19 12:00 Pulse Ox 95 01/04/19 12:00 Intake & Output 01/03/19 01/04/1901/04/19 18:59 06:59 18:59 Intake Total 486 Balance 486 Weight 81.5 kg Intake: IV 50 cefTRIAXone 1 gm In 50 Sodium Chloride 0.9% 50 ml @ 100 mls/hr IVPB ONCE STA Rx#:[id number] Oral 436 Other: Voiding Method Incontinent Incontinent Incontinent # Voids 1 2 # Bowel Movements 1 - Exam PHYSICAL EXAMINATION: GENERAL: 78-year-old gentleman in no acute distress at the time of my examination HEENT: Head is atraumatic, normocephalic. Some ecchymosis noted beneath the left eye. Pupils equal, round. Sclera anicteric. Conjunctiva are clear. Mucous membranes of the mouth are moist. Neck is supple. There is no elevated jugular venous pressure. No carotid bruit is heard. HEART EXAMINATION: Heart S1-S2 irregularly irregular a systolic murmur is heard CHEST EXAMINATION: Lungs reveal fine rales to bilateral bases with diminished. air entry to the bases bilaterally. ABDOMEN: Soft, nontender. Bowel sounds are heard. No organomegaly noted. EXTREMITIES: 2+ peripheral pulses with 1+ evidence of peripheral edema and no calf tenderness noted. Ecchymosis noted on the right hand NEUROLOGIC patient is awake, alert and oriented 1 . - Labs CBC & Chem 7: 01/03/19 05:25 01/04/19 05:44 Labs: Abnormal Lab Results - Last 24 Hours (Table) 01/04/19 Range/Units 05:44 Potassium 3.4 L (3.5-5.1) mmol/L Microbiology - Last 24 Hours (Table) 01/02/19 18:00 Blood Culture - Preliminary Blood No Growth after 24 hours Assessment and Plan Plan: Assessment and plan #1 syncope, rule out cardiac causes #2 congestive heart failure, systolic acute on chronic. Patient underwent an echocardiogram with Doppler study in August of this year at [facility] which showed an ejection fraction of 40-45%. #3 chronic persistent atrial fibrillation on Eliquis for anticoagulation #4 hypertensive urgency on admission, blood pressure was 198/115 #5 history of hypertension #6 hyperlipidemia #7 prior CVAs #8 possible acute left lower lobe pneumonia Plan Echocardiogram with Doppler study revealed an ejection fraction of 30-35%. We will add Aldactone to the patient's medication regime, continue current dose of IV Lasix. Repeat a chest x-ray in the morning. DNP note has been reviewed, I agree with a documented findings and plan of care. Patient was seen and examined.
[2019-01-04] MEDS: SPIRONOLACTONE 25 MG TAB PO SCH (16:36)
[2019-01-04] MEDS: SODIUM CHLORIDE 0.9% 1,000 ML IV SCH (16:38)
--- NOTE | 2019-01-04 20:27 | P.PN ---
Subjective Progress Note Date: 01/04/19 Principal diagnosis: Patient is a 78-year-old male with a known history of chronic atrial fibrillation on anticoagulation with a liquid is, COPD, hypertension, history of CVA 2 recently in 2019, history of carotid endarterectomy, currently at home by himself was brought to the hospital due to syncopal episode. According to his , patient was found on the floor twice, last night and this morning. Apparently patient has been on the floor for few hours. Patient denied any complaints of head injury or pain currently. Patient is somewhat poor historian. Denied any fever or chills. No cough is from production. No recent illnesses. Patient's is his caregiver. Denied any nausea vomiting or abdominal pain. No headache or dizziness or lightheadedness. Blood pressure 198/115 HR 68 on admission. Chest x-ray showed small pleural effusions. There is new left lower lobe pneumonia compared to oral exam. No obvious heart failure. EKG showed atrial fibrillation with controlled heart rate CT head showed no acute intracranial abnormality. Bilateral occipital infarcts which are old. Atrophic change. Chronic white matter ischemic change. Ethmoid and maxillary sinus mucosal disease. There are bilateral pleural effusions. Visualized portions of the lungs are clear. CT cervical spine showed no acute osseous lesion. Moderate degenerative change. Bilateral pleural effusions, greater on the right 01/03/2019 Patient is sitting up in the chair sleeping and somewhat arousable. Patient answers questions with yes and no but doesn't remain awake enough to have a conversation. No acute overnight issues. Per nursing staff this is his baseline. Potassium today was 3.3 and was replaced with a repeat potassium 3.6. Will continue to monitor closely. Cardiology is following and patient is to undergo an echo that is currently pending at this time. Will await report. Speech pathology is following as well and recommending a modified barium swallow that she will do in the morning. Case management and administrator social welfare following for possible placement upon discharge. Guarded prognosis. 01/04/2019 Patient sitting up in bed in no acute distress. Patient is more awake and alert today. Patient underwent a modified barium swallow today showing no evidence for aspiration. Cardiology is following. No acute overnight issues. Patient recent echo shows an EF of 30-35% with moderate to severely impaired left ventricular systolic function with a large pleural effusion. Patient is currently maintained on IV lasix at this time. Aldactone will be added to medications. Patient potassium was 3.3 today and being replaced. Will continue to monitor closely and repeat am labs. Case management and social work are following for possible placement at [facility] once discharged. Objective - Vital Signs Vital signs: Vital Signs Temp 98.2 F 01/04/19 12:00 Pulse 76 01/04/19 12:00 Resp 18 01/04/19 12:00 BP 133/62 01/04/19 12:00 Pulse Ox 95 01/04/19 12:00 Intake & Output 01/03/19 01/04/19 01/04/19 18:59 06:59 18:59 Intake Total 486 Balance 486 Weight 81.5 kg Intake: IV 50 cefTRIAXone 1 gm In 50 Sodium Chloride 0.9% 50 ml @ 100 mls/hr IVPB ONCE STA Rx#:[id number] Oral 436 Other: Voiding Method Incontinent Incontinent Incontinent # Voids 1 2 # Bowel Movements 1 - Exam Patient is sitting in the bed comfortably, no acute distress, alert and oriented x1-2. Mildly confused. HEENT: Normocephalic. Neck is supple. Pupils reactive. Nostrils clear. Oral cavity is moist. Ears reveal no drainage. Neck reveals no JVD, carotid bruits, or thyromegaly. CHEST EXAMINATION: Trachea is central. Symmetrical expansion. Bibasilar diminished air entry and crackles. No wheezing. CARDIAC: Normal S1, S2 with no gallops. Systolic murmur. Irregularly irregular rhythm. ABDOMEN: Soft. Bowel sounds normal. No organomegaly. No abdominal bruits. Extremities: 3+ bilateral pitting edema. No clubbing or cyanosis Neurologically awake, alert, oriented x2-3. Able to move extremities while in bed.. Mild cognitive impairment. Skin: No rash or skin lesions. Psychiatric: Cooperative. Non-suicidal Musculoskeletal: No joint swelling or deformity. Normal range of motion. - Labs CBC & Chem 7: 01/03/19 05:25 01/04/19 05:44 Labs: Abnormal Lab Results - Last 24 Hours (Table) 01/04/19 Range/Units 05:44 Potassium 3.4 L (3.5-5.1) mmol/L Microbiology - Last 24 Hours (Table) 01/02/19 18:00 Blood Culture - Preliminary Blood No Growth after 24 hours Assessment and Plan Assessment: Acute syncopal episode. Patient was found on the floor. Likely due to infection, uncontrolled HTN versus arrhythmia. Acute left lower lobe pneumonia Acute on chronic CHF. Ejection fraction is 30-35% Chronic atrial fibrillation on anticoagulation with eliquis. Hypertensive urgency on admission History of recent CVA 2 in 2019 COPD stable Previous history of smoking Plan: Patient will be continued on antibiotics in the form of azithromycin and rocephin was discontinued. Cardiology is following. We'll continue with IV Lasix at this time and repeat a.m. labs. PT/OT following and appreciate rec ommendations for discharge planning. Case management and social work are following for possible placement at [facility] upon discharge. Further recommendations to follow. Prognosis is guarded.
[2019-01-05] MEDS: hydrALAZINE HCL 25 MG TAB PO SCH ×2 (00:42→09:00)
[2019-01-05 07:28] LABS: Anisocytosis Slight; Basophils % (A) 0 %; Eosinophils # (A) 0.3 k/uL (0-0.7); Eosinophils % (A) 3 %; HCT 34.4 % (39.0-53.0); HGB 10.5 gm/dL (13.0-17.5); Hypochromasia Marked; Lymphocytes # (A) 1.5 k/uL (1.0-4.8); Lymphocytes % (A) 15 %; MCH 24.9 pg (25.0-35.0); MCHC 30.6 g/dL (31.0-37.0); MCV 81.6 fL (80.0-100.0); Monocytes # (A) 0.8 k/uL (0-1.0); Monocytes % (A) 8 %; Neutrophils # (A) 6.8 k/uL (1.3-7.7); Neutrophils % (A) 71 %; Platelet Count 174 k/uL (150-450); Poikilocytosis Slight; RBC 4.21 m/uL (4.30-5.90); RDW 16.3 % (11.5-15.5); WBC 9.6 k/uL (3.8-10.6)
[2019-01-05 07:56] LABS: Calcium 8.8 mg/dL (8.4-10.2); Potassium 3.8 mmol/L (3.5-5.1)
[2019-01-05] MEDS: POTASSIUM CHLORIDE ER 10 MEQ TAB.ER.PRT PO SCH (09:00)
[2019-01-05] MEDS: AZITHROMYCIN 500 MG TAB PO SCH (09:00)
[2019-01-05] MEDS: SPIRONOLACTONE 25 MG TAB PO SCH (09:01)
[2019-01-05] MEDS: FUROSEMIDE 10 MG/ML 4 ML VIAL IV SCH ×2 (09:01→21:59)
[2019-01-05] MEDS: APIXABAN 5 MG TAB PO SCH ×2 (09:01→21:59)
[2019-01-05] MEDS: ATORVASTATIN 40 MG TAB PO SCH (09:01)
[2019-01-05] MEDS: LISINOPRIL 20 MG TAB PO SCH (09:01)
[2019-01-05] MEDS: TAMSULOSIN 0.4 MG CAP.ER.24H PO SCH (09:01)
[2019-01-05] MEDS: METOPROLOL TARTRATE 50 MG TAB PO SCH (09:01)
[2019-01-05] MEDS: SERTRALINE 25 MG TAB PO SCH (09:49)
[2019-01-05] MEDS ORDERED: hydrALAZINE HCL 25 MG TAB PO STA (10:24)
--- NOTE | 2019-01-05 13:17 | P.PN ---
Subjective Progress Note Date: 01/05/19 Principal diagnosis: Patient is a 78-year-old male with a known history of chronic atrial fibrillation on anticoagulation with a liquid is, COPD, hypertension, history of CVA 2 recently in 2019, history of carotid endarterectomy, currently at home by himself was brought to the hospital due to syncopal episode. According to his , patient was found on the floor twice, last night and this morning. Apparently patient has been on the floor for few hours. Patient denied any complaints of head injury or pain currently. Patient is somewhat poor historian. Denied any fever or chills. No cough is from production. No recent illnesses. Patient's is his caregiver. Denied any nausea vomiting or abdominal pain. No headache or dizziness or lightheadedness. Blood pressure 198/115 HR 68 on admission. Chest x-ray showed small pleural effusions. There is new left lower lobe pneumonia compared to oral exam. No obvious heart failure. EKG showed atrial fibrillation with controlled heart rate CT head showed no acute intracranial abnormality. Bilateral occipital infarcts which are old. Atrophic change. Chronic white matter ischemic change. Ethmoid and maxillary sinus mucosal disease. There are bilateral pleural effusions. Visualized portions of the lungs are clear. CT cervical spine showed no acute osseous lesion. Moderate degenerative change. Bilateral pleural effusions, greater on the right 01/03/2019 Patient is sitting up in the chair sleeping and somewhat arousable. Patient answers questions with yes and no but doesn't remain awake enough to have a conversation. No acute overnight issues. Per nursing staff this is his baseline. Potassium today was 3.3 and was replaced with a repeat potassium 3.6. Will continue to monitor closely. Cardiology is following and patient is to undergo an echo that is currently pending at this time. Will await report. Speech pathology is following as well and recommending a modified barium swallow that she will do in the morning. Case management and social organization professor following for possible placement upon discharge. Guarded prognosis. 01/04/2019 Patient sitting up in bed in no acute distress. Patient is more awake and alert today. Patient underwent a modified barium swallow today showing no evidence for aspiration. Cardiology is following. No acute overnight issues. Patient recent echo shows an EF of 30-35% with moderate to severely impaired left ventricular systolic function with a large pleural effusion. Patient is currently maintained on IV lasix at this time. Aldactone will be added to medications. Patient potassium was 3.3 today and being replaced. Will continue to monitor closely and repeat am labs. Case management and social work are following for possible placement at [facility] once discharged. 01/05/2019 Patient is sitting up in bed in no acute distress with no acute overnight issues. Cardiology is following. Patient is awake and alert and responding to questions and commands and remains pleasantly confused. Patient is currently oxygenating well on room air and will continue to monitor vital signs closely. Patient is maintained on IV Lasix and will continue at this time. Aldactone was added yesterday and tolerating well. Repeat potassium today is 3.8, creatinine is 1.00. Currently patient denies any chest pain, shortness of breath, or palpitations. Patient is afebrile. Patient denies any nausea or vomiting and is tolerating diet. Objective - Vital Signs Vital signs: Vital Signs Temp 97.3 F L 01/05/19 05:00 Pulse 63 01/05/19 05:00 Resp 16 01/05/19 05:00 BP 181/87 01/05/19 05:00 Pulse Ox 97 01/05/19 05:00 Intake & Output 01/04/19 01/05/19 01/05/19 18:59 06:59 18:59 Intake Total 360 590 Balance 360 590 Intake: Oral 360 590 Other: Voiding Method Incontinent Diaper Diaper Incontinent Incontinent # Voids 1 - Exam Patient is sitting in the bed comfortably, no acute distress, alert and oriented x2. Mildly confused. HEENT: Normocephalic. Neck is supple. Pupils reactive. Nostrils clear. Oral cavity is moist. Ears reveal no drainage. Small contusion noted to the left eric ek from a previous fall Neck reveals no JVD, carotid bruits, or thyromegaly. CHEST EXAMINATION: Trachea is central. Symmetrical expansion. Bibasilar diminished air entry and mild crackles. No wheezing. CARDIAC: Normal S1, S2 with no gallops. Systolic murmur. Irregularly irregular rhythm. ABDOMEN: Soft. Bowel sounds normal. No organomegaly. No abdominal bruits. Extremities: 1+ bilateral pitting edema. No clubbing or cyanosis Neurologically awake, alert, oriented x2-3. Able to move extremities while in bed.. Mild cognitive impairment. Skin: No rash or skin lesions. Psychiatric: Cooperative. Non-suicidal Musculoskeletal: No joint swelling or deformity. Normal range of motion. - Labs CBC & Chem 7: 01/05/19 07:07 01/05/19 07:07 Labs: Abnormal Lab Results - Last 24 Hours (Table) 01/05/19 01/05/19 Range/Units 07:07 07:07 RBC 4.21 L (4.30-5.90) m/uL Hgb 10.5 L (13.0-17.5) gm/dL Hct 34.4 L (39.0-53.0) % MCH 24.9 L (25.0-35.0) pg MCHC 30.6 L (31.0-37.0) g/dL RDW 16.3 H (11.5-15.5) % BUN 35 H (9-20) mg/dL Glucose 101 H (74-99) mg/dL Microbiology - Last 24 Hours (Table) 01/02/19 18:00 Blood Culture - Preliminary Blood No Growth after 48 hours Assessment and Plan Assessment: Acute syncopal episode. Patient was found on the floor. Likely due to infection, uncontrolled HTN versus arrhythmia. Acute left lower lobe pneumonia Acute on chronic CHF. Ejection fraction is 30-35% Chronic atrial fibrillation on anticoagulation with eliquis. Hypertensive urgency on admission History of recent CVA 2 in 2019 COPD stable Previous history of smoking Recommendations and discussion: Recommend continue current medications, management, and symptomatic treatment. Cardiology is following. Patient is maintained on IV Lasix and will continue at this time. Patient is diuresing well. Repeat potassium today is 3.8. Case management and social organization professor following for assistance with placement at the [facility] once discharged. Further recommendations to follow. Philip acosta prognosis. Possible discharge in 24-48 hours.
--- NOTE | 2019-01-05 13:39 | P.PN ---
Subjective This is a pleasant 78-year-old male past medical history significant for hypertension, peripheral vascular disease s/p left carotid endartectomy, chronic persistent atrial fibrillation, dyslipidemia, pulmonary hypertension and chronic systolic heart failure and CVA in the past. He follows with Dr. Crenshaw. Currently maintained on lasix 40 mg IV BID, Eliquis 5 mg twice a day, atorvastatin 40 mg daily, hydralazine 25 mg 3 times a day, lisinopril 40 mg daily, metoprolol 50 mg twice a day, Aldactone 25 mg daily. Blood pressure 181/87 heart rate 63 afebrile maintaining oxygen saturation on room air. Laboratory data reviewed, WBC 9.6, hemoglobin 10.5, platelets 174, sodium 144, potassium 3.8, creatinine 1.0. He is seen and examined resting comfortably in bed in no acute distress. He continues to feel short of breath however appears comfortable. He denies symptoms of chest discomfort, dizziness or palpitations. Repeat chest xray this morning is pending. Telemetry tracings indicate bradycardia an intermittent less than 2 second pauses. GENERAL: Well-appearing, well-nourished and in no acute distress. NECK: Supple without JVD or thyromegaly. LUNGS: Bibasilar rales, no wheezes or rhonchi. Respiration equal and unlabored. HEART: Irregular rate and rhythm with systolic ejection murmur at the left sternal border, no rubs or gallops. S1 and S2 heard. EXTREMITIES: Normal range of motion, no edema. No clubbing or cyanosis. Peripheral pulses intact. ASSESSMENT Syncope Acute on chronic systolic heart failure Chronic persistent atrial fibrillation on long-term anticoagulation Hypertensive urgency Dyslipidemia History of CVA Pulmonary hypertension PLAN Decrease lopressor to 25 mg BID. Increase hydralazine to 50 mg TID, given additional 25 mg now. Continue IV diuresis. Follow renal function and electrolytes in the morning. Nurse Practitioner note has been reviewed, I agree with a documented findings and plan of care. Patient was seen and examined. Objective - Vital Signs Vital signs: Vital Signs Temp 97.3 F L 01/05/19 05:00 Pulse 63 01/05/19 05:00 Resp 16 01/05/19 05:00 BP 181/87 01/05/19 05:00 Pulse Ox 97 01/05/19 05:00 Intake & Output 01/04/19 01/05/1901/05/19 18:59 06:59 18:59 Intake Total 360 590 Balance 360 590 Intake: Oral 360 590 Other: Voiding Method Incontinent Diaper Diaper Incontinent Incontinent # Voids 1 - Labs CBC & Chem 7: 01/05/19 07:07 01/05/19 07:07 Labs: Abnormal Lab Results - Last 24 Hours (Table) 01/05/19 01/05/19 Range/Units 07:07 07:07 RBC 4.21 L (4.30-5.90) m/uL Hgb 10.5 L (13.0-17.5) gm/dL Hct 34.4 L (39.0-53.0) % MCH 24.9 L (25.0-35.0) pg MCHC 30.6 L (31.0-37.0) g/dL RDW 16.3 H (11.5-15.5) % BUN 35 H (9-20) mg/dL Glucose 101 H (74-99) mg/dL Microbiology - Last 24 Hours (Table) 01/02/19 18:00 Blood Culture - Preliminary Blood No Growth after 48 hours
--- NOTE | 2019-01-05 14:15 | XR ---
EXAMINATION TYPE: XR chest 2V DATE OF EXAM: 01/05/2019 COMPARISON: 01/03/2019 TECHNIQUE: PA and lateral views submitted. HISTORY: Shortness of breath FINDINGS: Persistent bilateral consolidation and pleural effusion with interstitial pattern. Chronic right clav icle fracture. No pneumothorax. Atherosclerotic change aorta. Hypertrophic and degenerative change of the spine. IMPRESSION: 1. Bilateral infiltrate and pleural effusion correlate for mild CHF which may be slightly improved co mpared to the prior exam. Underlying pneumonia not excluded.
[2019-01-05] MEDS: hydrALAZINE HCL 50 MG TAB PO SCH ×2 (16:57→21:59)
[2019-01-05] MEDS: METOPROLOL TARTRATE 25 MG TAB PO SCH (21:59)
[2019-01-06] MEDS: FUROSEMIDE 10 MG/ML 4 ML VIAL IV SCH (08:39)
[2019-01-06 08:51] LABS: African American GFR (CKD) >90 (>60 ml/min/1.73 sqM); Anion Gap 8 mmol/L; Blood Urea Nitrogen 34 mg/dL (9-20); Calcium 8.7 mg/dL (8.4-10.2); Carbon Dioxide 29 mmol/L (22-30); Chloride 105 mmol/L (98-107); Glucose 91 mg/dL (74-99); Non-African American GFR(CKD) 83 (>60 ml/min/1.73 sqM); Potassium 3.4 mmol/L (3.5-5.1); Sodium 142 mmol/L (137-145)
[2019-01-06] MEDS ORDERED: POTASSIUM CHLORIDE ER 20 MEQ TAB.ER PO STA (08:52)
[2019-01-06] MEDS: APIXABAN 5 MG TAB PO SCH ×2 (08:53→21:57)
[2019-01-06] MEDS: AZITHROMYCIN 500 MG TAB PO SCH (08:53)
[2019-01-06] MEDS: ATORVASTATIN 40 MG TAB PO SCH (08:53)
[2019-01-06] MEDS: LISINOPRIL 20 MG TAB PO SCH (08:53)
[2019-01-06] MEDS: hydrALAZINE HCL 50 MG TAB PO SCH (08:53)
[2019-01-06] MEDS: SPIRONOLACTONE 25 MG TAB PO SCH (08:54)
[2019-01-06] MEDS: SERTRALINE 25 MG TAB PO SCH (08:54)
[2019-01-06] MEDS: TAMSULOSIN 0.4 MG CAP.ER.24H PO SCH (08:54)
[2019-01-06] MEDS: POTASSIUM CHLORIDE ER 10 MEQ TAB.ER.PRT PO SCH (08:54)
[2019-01-06] MEDS: METOPROLOL TARTRATE 25 MG TAB PO SCH ×2 (09:29→21:57)
[2019-01-06] MEDS ORDERED: hydrALAZINE HCL 25 MG TAB PO STA (10:54)
--- NOTE | 2019-01-06 13:15 | P.PN ---
Subjective This is a pleasant 78-year-old male past medical history significant for hypertension, peripheral vascular disease s/p left carotid endartectomy, chronic persistent atrial fibrillation, dyslipidemia, pulmonary hypertension and chronic systolic heart failure and CVA in the past. He follows with Dr. Crenshaw. Currently maintained on lasix 40 mg IV BID, Eliquis 5 mg twice a day, atorvastatin 40 mg daily, hydralazine 50 mg 3 times a day, lisinopril 40 mg daily, metoprolol 25 mg twice a day, Aldactone 25 mg daily. Blood pressure 186/91 heart rate 55 afebrile and maintaining oxygen saturation on room air. He is seen and examined sitting up in the bed with his sister visiting. Overall he states he feels like he is improving since admission, but not back to baseline entirely. Repeat chest xray yesterday afternoon revealed slight improvement in pleural effusions. Laboratory data reviewed, sodium 142, potassium 3.4, creatinine 0.87. Weight is down from 83 kg on admisison to 78.5 this morning. No output documentation secondary to incontinence. Ongoing less than 2 second pauses noted on telemetry. GENERAL: Well-appearing, well-nourished and in no acute distress. NECK: Supple without JVD or thyromegaly. LUNGS: Bibasilar rales minimal and improved from yesterday, no wheezes or rhonchi. Respiration equal and unlabored. HEART: Irregular rate and rhythm with systolic ejection murmur at the left sternal border, no rubs or gallops. S1 and S2 heard. EXTREMITIES: Normal range of motion, no edema. No clubbing or cyanosis. Peripheral pulses intact. ASSESSMENT Syncope Acute on chronic systolic heart failure Chronic persistent atrial fibrillation on long-term anticoagulation Hypertensive urgency Dyslipidemia History of CVA Pulmonary hypertension PLAN Transition to oral diuretics, lasix 60 in the morning and 40 at bedtime. Increase hydralazine to 75 mg TID for blood pressure control. Additional dose of 25 mg now. Repeat chest xray and BMP in the morning. Will apply event monitor on discharge. Expect he can be discharged in the next 24-48 hours. Nurse Practitioner note has been reviewed, I agree with a documented findings and plan of care. Patient was seen and examined. Objective - Vital Signs Vital signs: Vital Signs Temp 96.6 F L 01/06/19 12:15 Pulse 63 01/06/19 12:15 Resp 18 01/06/19 12:15 BP 159/74 01/06/19 12:15 Pulse Ox 99 01/06/19 12:15 Intake & Output 01/05/19 01/06/19 01/06/19 18:59 06:59 18:59 Intake Total 100 Balance 100 Weight 79.8 kg 78.5 kg Intake: Oral 100 Other: Voiding Method Diaper Toilet Toilet Incontinent Diaper Diaper Incontinent # Voids 1 1 # Bowel Movements 1 1 - Labs CBC & Chem 7: 01/05/19 07:07 01/06/19 07:42 Labs: Abnormal Lab Results - Last 24 Hours (Table) 01/06/19 Range/Units 07:42 Potassium 3.4 L (3.5-5.1) mmol/L BUN 34 H (9-20) mg/dL Microbiology - Last 24 Hours (Table) 01/02/19 18:00 Blood Culture - Preliminary Blood No Growth after 72 hours
--- NOTE | 2019-01-06 15:26 | P.PN ---
Subjective Progress Note Date: 01/06/19 Principal diagnosis: Patient is a 78-year-old male with a known history of chronic atrial fibrillation on anticoagulation with a liquid is, COPD, hypertension, history of CVA 2 recently in 2019, history of carotid endarterectomy, currently at home by himself was brought to the hospital due to syncopal episode. According to his , patient was found on the floor twice, last night and this morning. Apparently patient has been on the floor for few hours. Patient denied any complaints of head injury or pain currently. Patient is somewhat poor historian. Denied any fever or chills. No cough is from production. No recent illnesses. Patient's is his caregiver. Denied any nausea vomiting or abdominal pain. No headache or dizziness or lightheadedness. Blood pressure 198/115 HR 68 on admission. Chest x-ray showed small pleural effusions. There is new left lower lobe pneumonia compared to oral exam. No obvious heart failure. EKG showed atrial fibrillation with controlled heart rate CT head showed no acute intracranial abnormality. Bilateral occipital infarcts which are old. Atrophic change. Chronic white matter ischemic change. Ethmoid and maxillary sinus mucosal disease. There are bilateral pleural effusions. Visualized portions of the lungs are clear. CT cervical spine showed no acute osseous lesion. Moderate degenerative change. Bilateral pleural effusions, greater on the right 01/03/2019 Patient is sitting up in the chair sleeping and somewhat arousable. Patient answers questions with yes and no but doesn't remain awake enough to have a conversation. No acute overnight issues. Per nursing staff this is his baseline. Potassium today was 3.3 and was replaced with a repeat potassium 3.6. Will continue to monitor closely. Cardiology is following and patient is to undergo an echo that is currently pending at this time. Will await report. Speech pathology is following as well and recommending a modified barium swallow that she will do in the morning. Case management and long term care social worker following for possible placement upon discharge. Guarded prognosis. 01/04/2019 Patient sitting up in bed in no acute distress. Patient is more awake and alert today. Patient underwent a modified barium swallow today showing no evidence for aspiration. Cardiology is following. No acute overnight issues. Patient recent echo shows an EF of 30-35% with moderate to severely impaired left ventricular systolic function with a large pleural effusion. Patient is currently maintained on IV lasix at this time. Aldactone will be added to medications. Patient potassium was 3.3 today and being replaced. Will continue to monitor closely and repeat am labs. Case management and social work are following for possible placement at [facility] once discharged. 01/05/2019 Patient is sitting up in bed in no acute distress with no acute overnight issues. Cardiology is following. Patient is awake and alert and responding to questions and commands and remains pleasantly confused. Patient is currently oxygenating well on room air and will continue to monitor vital signs closely. Patient is maintained on IV Lasix and will continue at this time. Aldactone was added yesterday and tolerating well. Repeat potassium today is 3.8, creatinine is 1.00. Currently patient denies any chest pain, shortness of breath, or palpitations. Patient is afebrile. Patient denies any nausea or vomiting and is tolerating diet. 01/06/2019 Patient is sitting up in the chair in no acute distress with family at bedside. No acute overnight issues. Cardiology is following. Patient is being transitioned to oral Lasix and will continue to monitor vital signs and labs closely. Will repeat chest x-ray and labs in the morning. Patient is having some right groin pain with coughing and position changes and per family she states that he has been having this since he is been admitted to the hospital and she takes care of him every day at home and he has not complained of this pain in the right groin until now. Surgery will be consulted. Currently patient denies any chest pain or palpitations at this time. Patient states that his shortness of breath has improved and is currently maintaining oxygenation on room air. Potassium today was 3.4 will be replaced. Creatinine has improved and is 0.87. Objective - Vital Signs Vital signs: Vital Signs Temp 96.6 F L 01/06/19 12:15 Pulse 63 01/06/19 12:15 Resp 18 01/06/19 12:15 BP 159/74 01/06/19 12:15 Pulse Ox 99 01/06/19 12:15 Intake & Output 01/05/19 01/06/19 01/06/19 18:59 06:59 18:59 Intake Total 100 Balance 100 Weight 79.8 kg 78.5 kg Intake: Oral 100 Other: Voiding Method Diaper Toilet Toilet Incontinent Diaper Diaper Incontinent # Voids 1 1 # Bowel Movements 1 1 - Exam Patient is sitting up in the chair comfortably, no acute distress, alert and oriented x2. Mildly confused. HEENT: Normocephalic. Neck is supple. Pupils reactive. Nostrils clear. Oral cavity is moist. Ears reveal no drainage. Small contusion noted to the left cheek from a previous fall Neck reveals no JVD, carotid bruits, or thyromegaly. CHEST EXAMINATION: Trachea is central. Symmetrical expansion. Bibasilar diminished air entry and mild crackles. No wheezing. Slightly improved CARDIAC: Normal S1, S2 with no gallops. Systolic murmur. Irregularly irregular rhythm. ABDOMEN: Soft. Bowel sounds normal. No organomegaly. No abdominal bruits. Right lower groin discomfort with coughing and movement Extremities: 1+ bilateral pitting edema. No clubbing or cyanosis Neurologically awake, alert, oriented x2-3. Able to move extremities. Mild cognitive impairment. Skin: No rash or skin lesions. Psychiatric: Cooperative. Non-suicidal Musculoskeletal: No joint swelling or deformity. Normal range of motion. - Labs CBC & Chem 7: 01/05/19 07:07 01/06/19 07:42 Labs: Abnormal Lab Results - Last 24 Hours (Table) 01/06/19 Range/Units 07:42 Potassium 3.4 L (3.5-5.1) mmol/L BUN 34 H (9-20) mg/dL Microbiology - Last 24 Hours (Table) 01/02/19 18:00 Blood Culture - Preliminary Blood No Growth after 72 hours Assessment and Plan Assessment: Acute syncopal episode. Patient was found on the floor. Likely due to infection, uncontrolled HTN versus arrhythmia. Acute left lower lobe pneumonia Right groin pain possibility of an inguinal hernia; surgery is consulted Acute on chronic CHF. Ejection fraction is 30-35% Chronic atrial fibrillation on anticoagulation with eliquis. Hypertensive urgency on admission History of recent CVA 2 in 2019 COPD stable Previous history of smoking Recommendations and discussion: Recommend continue current medications, management, and symptomatic treatment. Cardiology is following. Patient was maintained on IV Lasix and will transition over to oral today. Patient is diuresing well. Repeat potassium today is 3.4 and was replaced. Will repeat a.m. labs and a chest x-ray. Patient was having some right groin pain with cough and position changes. Surgery was consulted and is currently pending at this time. Case management and long term care social worker following for assistance with placement at the [facility] once discharged. Further recommendations to follow. Guarded prognosis. Possible discharge in 24-48 hours.
[2019-01-06] MEDS: hydrALAZINE HCL 25 MG TAB PO SCH ×2 (16:02→21:57)
[2019-01-06] MEDS: FUROSEMIDE 40 MG TAB PO SCH (21:57)
[2019-01-07] MEDS: FUROSEMIDE 20 MG TAB PO SCH (08:27)
[2019-01-07] MEDS: hydrALAZINE HCL 25 MG TAB PO SCH ×3 (08:27→20:56)
[2019-01-07] MEDS: ATORVASTATIN 40 MG TAB PO SCH (08:27)
[2019-01-07] MEDS: AZITHROMYCIN 500 MG TAB PO SCH (08:27)
[2019-01-07] MEDS: APIXABAN 5 MG TAB PO SCH ×2 (08:27→20:56)
[2019-01-07] MEDS: SERTRALINE 25 MG TAB PO SCH (08:28)
[2019-01-07] MEDS: SPIRONOLACTONE 25 MG TAB PO SCH (08:28)
[2019-01-07] MEDS: METOPROLOL TARTRATE 25 MG TAB PO SCH ×2 (08:28→20:57)
[2019-01-07] MEDS: POTASSIUM CHLORIDE ER 10 MEQ TAB.ER.PRT PO SCH (08:28)
[2019-01-07] MEDS: LISINOPRIL 20 MG TAB PO SCH (08:28)
[2019-01-07] MEDS: TAMSULOSIN 0.4 MG CAP.ER.24H PO SCH (08:28)
[2019-01-07 09:33] LABS: Calcium 8.9 mg/dL (8.4-10.2); Potassium 3.8 mmol/L (3.5-5.1)
--- NOTE | 2019-01-07 11:33 | P.GSCN ---
<Geraldine Olvera - Last Filed: 01/07/19 11:31> History of Present Illness Consult date: 01/07/19 Reason for Consult: hernia Requesting physician: Gretta aBrger History of present illness: CHIEF COMPLAINT: hernia HISTORY OF PRESENT ILLNESS: 78-year-old male who was admitted to the hospital secondary to a syncopal episode and pneumonia. General surgery was consulted to evaluate a possible right inguinal hernia. Patient examined at the bedside with Dr. Feldre. At the time of examination, no inguinal hernia is palpated. The patient denies left or right groin pain. He is unable to recall if he felt a lump there yesterday or not. He is also not sure if he was having pain there yesterday. PAST MEDICAL HISTORY: See list. PAST SURGICAL HISTORY: See list. MEDICATIONS: See list. ALLERGIES: See list. SOCIAL HISTORY: No illicit drug use. REVIEW OF SYSTEMS: CONSTITUTIONAL: Denies fever or chills. HEENT: Denies blurred vision, vision changes, or eye pain. Denies hemoptysis ENDOCRINE: Denies heat or cold intolerance. CARDIOVASCULAR: Denies chest pain or pressure. RESPIRATORY: No shortness of breath. GASTROINTESTINAL: Denies abdominal pain. Denies nausea or vomiting. NEURO: Denies history of seizures. PSYCH: No depression or suicidal ideation HEMATOLOGIC: Denies bleeding disorders. LYMPHATIC: The patient denies any lumps and bumps around the neck. GENITOURINARY: Denies any blood in urine or increased urinary frequency. MUSCULOSKELETAL: Denies myalgias. Denies joint swelling. Denies decreased range of motion beyond patients baseline. SKIN: Denies pruitis. Denies rash. PHYSICAL EXAM: VITAL SIGNS: Reviewed GENERAL: Well-developed in no acute distress. HEENT: No sclera icterus. Extraocular movements grossly intact. Moist buccal mucosa. Head is atraumatic, normocephalic. Hears conversational speech. No nasal drai nage. NECK: Supple without lymphadenopathy. CHEST: Non-labored respirations and equal bilateral excursions. CARDIOVASCULAR: Irregular rhythm. Palpable 2+ radial pulses. ABDOMEN: Soft. Nondistended. Nontender. No palpable hernias MUSCULOSKELETAL: No clubbing or cyanosis. NEUROLOGIC: No focal or lateralizing signs. Cranial nerves II through XII grossly intact. PSYCH: Appropriate affect. Alert and oriented to person, place and time. SKIN: Well perfused. Good skin turgor. LABORATORY DATA: Most recent laboratory data reveals WBC 9.6. Hemoglobin 10.5. Platelet count 174. Sodium 143. Potassium 3.8. BUN 37. Creatinine 0.99. ASSESSMENT: 1. Questionable right groin pain, possible inguinal hernia PLAN: Patient currently denies pain to the right groin. No hernia palpated during examination. Will obtain CT to determine if hernia is present Further recommendations pending Nurse practitioner note has been reviewed by physician. Signing provider agrees with the documented findings, assessment, and plan of care. 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 ATTENDING: DR CODY History of Any Multi-Drug Resistant Organisms: None Reported Past Surgical History: Unable to Obtain Additional Past Surgical History / Comment(s): LEFT CAROTID SURGERY- PER JESSICA PRADO Past Psychological History: No Psychological Hx Reported Smoking Status: Former smoker Past Alcohol Use History: None Reported Past Drug Use History: None Reported Medications and Allergies Home Medications Medication Instructions Recorded Confirmed Type Apixaban [Eliquis] 5 mg PO BID 01/02/19 01/02/19 History Atorvastatin [Lipitor] 40 mg PO DAILY 01/02/19 01/02/19 History Furosemide [Lasix] 40 mg PO DAILY 01/02/19 01/02/19 History Lisinopril 40 mg PO DAILY 01/02/19 01/02/19 History Magnesium/Calcium 1 tab PO DAILY 01/02/19 01/02/19 History Metoprolol Tartrate [Lopressor] 25 mg PO BID 01/02/19 01/02/19 History Potassium Chloride ER [K-Dur 10] 10 meq PO DAILY 01/02/19 01/02/19 History Sertraline HCl [Zoloft] 25 mg PO DAILY 01/02/19 01/02/19 History Tamsulosin [Flomax] 0.4 mg PO DAILY 01/02/19 01/02/19 History hydrALAZINE HCL [Apresoline] 25 mg PO Q8H 01/02/19 01/02/19 History Allergies Allergy/AdvReac Type Severity Reaction Status Date / Time No Known Allergies Allergy Verified 01/02/19 15:47 Surgical - Exam Vital Signs Pulse Ox 99 01/02/19 11:45 Results - Labs 01/05/19 07:07 01/07/19 08:48 Abnormal Lab Results - Last 24 Hours (Table) 01/07/19 Range/Units 08:48 Carbon Dioxide 34 H (22-30) mmol/L BUN 37 H (9-20) mg/dL Glucose 118 H (74-99) mg/dL Microbiology - Last 24 Hours (Table) 01/02/19 18:00 Blood Culture - Preliminary Blood No Growth after 96 hours Diabetes panel 01/07/19 Range/Units 08:48 Sodium 143 (137-145) mmol/L Potassium 3.8 (3.5-5.1) mmol/L Chloride 103 (98-107) mmol/L Carbon Dioxide 34 H (22-30) mmol/L BUN 37 H (9-20) mg/dL Creatinine 0.99 (0.66-1.25) mg/dL Glucose 118 H (74-99) mg/dL Calcium 8.9 (8.4-10.2) mg/dL Calcium panel 01/07/19 Range/Units 08:48 Calcium 8.9 (8.4-10.2) mg/dL Pituitary panel 01/07/19 Range/Units 08:48 Sodium 143 (137-145) mmol/L Potassium 3.8 (3.5-5.1) mmol/L Chloride 103 (98-107) mmol/L Carbon Dioxide 34 H (22-30) mmol/L BUN 37 H (9-20) mg/dL Creatinine 0.99 (0.66-1.25) mg/dL Glucose 118 H (74-99) mg/dL Calcium 8.9 (8.4-10.2) mg/dL Adrenal panel 01/07/19 Range/Units 08:48 Sodium 143 (137-145) mmol/L Potassium 3.8 (3.5-5.1) mmol/L Chloride 103 (98-107) mmol/L Carbon Dioxide 34 H (22-30) mmol/L BUN 37 H (9-20) mg/dL Creatinine 0.99 (0.66-1.25) mg/dL Glucose 118 H (74-99) mg/dL Calcium 8.9 (8.4-10.2) mg/dL <Malinda Felder N - Last Filed: 01/07/19 20:11> History of Present Illness History of present illness: CT of the abdomen and pelvis independently reviewed demonstrating moderate ascites including large pleural effusions. Right inguinal hernia fairly small and does not contain small intestine. As a result, urgent surgical intervention is not needed. He is asymptomatic. Patient currently clinically not optimized. Recommend outpatient assessment and management for inguinal hernia. He will likely need medical and cardiac clearance for any future operations. At this time, we'll sign off. Your medica l management regarding ascites and pleural effusions. Surgical - Exam Vital Signs Pulse Ox 99 01/02/19 11:45 Results - Labs 01/05/19 07:07 01/07/19 08:48 Abnormal Lab Results - Last 24 Hours (Table) 01/07/19 Range/Units 08:48 Carbon Dioxide 34 H (22-30) mmol/L BUN 37 H (9-20) mg/dL Glucose 118 H (74-99) mg/dL Microbiology - Last 24 Hours (Table) 01/02/19 18:00 Blood Culture - Preliminary Blood No Growth after 120 hours Diabetes panel 01/07/19 Range/Units 08:48 Sodium 143 (137-145) mmol/L Potassium 3.8 (3.5-5.1) mmol/L Chloride 103 (98-107) mmol/L Carbon Dioxide 34 H (22-30) mmol/L BUN 37 H (9-20) mg/dL Creatinine 0.99 (0.66-1.25) mg/dL Glucose 118 H (74-99) mg/dL Calcium 8.9 (8.4-10.2) mg/dL Calcium panel 01/07/19 Range/Units 08:48 Calcium 8.9 (8.4-10.2) mg/dL Pituitary panel 01/07/19 Range/Units 08:48 Sodium 143 (137-145) mmol/L Potassium 3.8 (3.5-5.1) mmol/L Chloride 103 (98-107) mmol/L Carbon Dioxide 34 H (22-30) mmol/L BUN 37 H (9-20) mg/dL Creatinine 0.99 (0.66-1.25) mg/dL Glucose 118 H (74-99) mg/dL Calcium 8.9 (8.4-10.2) mg/dL Adrenal panel 01/07/19 Range/Units 08:48 Sodium 143 (137-145) mmol/L Potassium 3.8 (3.5-5.1) mmol/L Chloride 103 (98-107) mmol/L Carbon Dioxide 34 H (22-30) mmol/L BUN 37 H (9-20) mg/dL Creatinine 0.99 (0.66-1.25) mg/dL Glucose 118 H (74-99) mg/dL Calcium 8.9 (8.4-10.2) mg/dL
--- NOTE | 2019-01-07 12:09 | CT ---
EXAMINATION TYPE: CT abdomen pelvis w con DATE OF EXAM: 01/07/2019 COMPARISON: None HISTORY: Abdominal pain. Possible inguinal hernia. CT DLP: 859.5 mGycm Automated exposure control for dose reduction was used. TECHNIQUE: Helical acquisition of images was performed from the lung bases through the pelvis. CONTRAST: Performed without Oral Contrast and with IV Contrast, patient injected with 100 mL of Isovue 300. FINDINGS: LUNG BASES: Trace left pleural effusion and small right pleural effusion are seen with compressive at electasis. The heart is enlarged in all 4 chambers. There is reflux of contrast into the hepatic vein s. LIVER/GB: Hepatic parenchyma is diffusely hypoattenuated in comparison to that of the spleen, most co mmonly seen in hepatic steatosis. This finding limits evaluation for hepatic masses. No gross evidenc e of hepatic mass is seen. No intrahepatic biliary ductal dilatation. No cholelithiasis. PANCREAS: No significant abnormality is seen. SPLEEN: No splenomegaly. ADRENALS: No nodularity or thickening. KIDNEYS: 1.1 cm left lesion appears as a cyst with psuedoenhancement. FREE AIR: No free air is visualized. RETROPERITONEAL ADENOPATHY: No greater than 1 cm short axis lymph node in the abdomen or pelvis. OSSEOUS STRUCTURES: There is minimal retrolisthesis of L3 on L4 and L4 on L5. Diffuse osseous demine ralization is present with mild bone marrow S1, likely from osseous mineralization. Moderate degenera tive changes of the spine. BOWEL: Numerous colonic diverticula are seen without pericolonic fat stranding. No dilated large or small bowel. OTHER: Small volume dependent pelvic ascites and diffuse anasarca seen. Perihepatic ascites is also t race as well as a trace amount of perisplenic ascites. Diffuse mesenteric haziness related fluid over load. There is a small right inguinal hernia that contains abdominal ascites. Left inguinal canal is slight ly patulous and fat-containing. Extensive atheromatous changes of the abdominal aorta and its branches. IMPRESSION: 1. CONFIRMATION OF A RIGHT INGUINAL HERNIA, SMALL BUT CONTAINING PELVIC ASCITES. 2. FLUID OVERLOAD WITH MODERATE GRADE AND SMALL LEFT PLEURAL EFFUSIONS, AND MESENTERIC EDEMA, SMALL V OLUME ASCITES, AND ANASARCA. FINDINGS OF RIGHT HEART FAILURE.
--- NOTE | 2019-01-07 12:57 | P.PN ---
Subjective This is a pleasant 78-year-old male past medical history significant for hypertension, peripheral vascular disease s/p left carotid endartectomy, chronic persistent atrial fibrillation, dyslipidemia, pulmonary hypertension and chronic systolic heart failure and CVA in the past. He follows with Dr. Crenshaw. Currently maintained on lasix 60 mg in morning and 40 mg at bedtime, eliquis 5 mg BID, atrovastatin 40 mg daily, hydralazine 75 mg TID, lopressor 25 mg BID, lisinopril 40 mg daily and aldactone 25 mg daily. He is seen and examined sitting up in bed in no acute distress. He denies chest pain, shortness of breath, dizziness or palpitations. Blood pressure 142/86 heart rate 73 afebrile and maintaining oxygen saturation on room air. Chest xray is pending. Laboratory data reviewed, sodium 143, potassium 3.8, creatinine 0.99. GENERAL: Well-appearing, well-nourished and in no acute distress. NECK: Supple without JVD or thyromegaly. LUNGS: Bibasilar rales minimal and improved from yesterday, no wheezes or rhonchi. Respiration equal and unlabored. HEART: Irregular rate and rhythm with systolic ejection murmur at the left estrella rnal border, no rubs or gallops. S1 and S2 heard. EXTREMITIES: Normal range of motion, no edema. No clubbing or cyanosis. Peripheral pulses intact. ASSESSMENT Syncope Acute on chronic systolic heart failure Chronic persistent atrial fibrillation on long-term anticoagulation Hypertensive urgency Dyslipidemia History of CVA Pulmonary hypertension PLAN Stable on current medical regimen. Can be discharged from a cardiac perspective. Event monitor to be placed for 30 days prior to discharge. Report to his primary school occupational therapist, Dr. Crenshaw. We will follow as needed, please feel free to call with questions or concerns. Nurse Practitioner note has been reviewed, I agree with a documented findings and plan of care. Patient was seen and examined. Objective - Vital Signs Vital signs: Vital Signs Temp 97.5 F L 01/07/19 07:10 Pulse 73 01/07/19 07:10 Resp 18 01/07/19 07:10 BP 142/86 01/07/19 09:40 Pulse Ox 95 01/07/19 07:10 Intake & Output 01/06/19 01/07/19 01/07/19 18:59 06:59 18:59 Weight 79 kg Other: Voiding Method Toilet Toilet Toilet Diaper Diaper Diaper # Voids 1 1 # Bowel Movements 1 1 - Labs CBC & Chem 7: 01/05/19 07:07 01/07/19 08:48 Labs: Abnormal Lab Results - Last 24 Hours (Table) 01/07/19 Range/Units 08:48 Carbon Dioxide 34 H (22-30) mmol/L BUN 37 H (9-20) mg/dL Glucose 118 H (74-99) mg/dL Microbiology - Last 24 Hours (Table) 01/02/19 18:00 Blood Culture - Preliminary Blood No Growth after 96 hours
--- NOTE | 2019-01-07 13:19 | XR ---
EXAMINATION TYPE: XR chest 1V portable DATE OF EXAM: 01/07/2019 COMPARISON: Prior chest 01/05/2019 HISTORY: Congestive heart failure TECHNIQUE: Single frontal view of the chest is obtained. FINDINGS: Heart is enlarged. No evident pneumothorax. There are overlying cardiac leads. Perihilar v ascular indistinctness is noted, interstitium is increased. Aorta is dense. IMPRESSION: Findings are similar to prior exam. Cardiomegaly, correlate for pulmonary venous hyperte nsion and interstitial edema.
[2019-01-07 13:59] VITALS: BMI 26.4
--- NOTE | 2019-01-07 15:08 | P.PN ---
Subjective Progress Note Date: 01/07/19 Principal diagnosis: Patient is a 78-year-old male with a known history of chronic atrial fibrillation on anticoagulation with a liquid is, COPD, hypertension, history of CVA 2 recently in 2019, history of carotid endarterectomy, currently at home by himself was brought to the hospital due to syncopal episode. According to his , patient was found on the floor twice, last night and this morning. Apparently patient has been on the floor for few hours. Patient denied any complaints of head injury or pain currently. Patient is somewhat poor historian. Denied any fever or chills. No cough is from production. No recent illnesses. Patient's is his caregiver. Denied any nausea vomiting or abdominal pain. No headache or dizziness or lightheadedness. Blood pressure 198/115 HR 68 on admission. Chest x-ray showed small pleural effusions. There is new left lower lobe pneumonia compared to oral exam. No obvious heart failure. EKG showed atrial fibrillation with controlled heart rate CT head showed no acute intracranial abnormality. Bilateral occipital infarcts which are old. Atrophic change. Chronic white matter ischemic change. Ethmoid and maxillary sinus mucosal disease. There are bilateral pleural effusions. Visualized portions of the lungs are clear. CT cervical spine showed no acute osseous lesion. Moderate degenerative change. Bilateral pleural effusions, greater on the right 01/03/2019 Patient is sitting up in the chair sleeping and somewhat arousable. Patient answers questions with yes and no but doesn't remain awake enough to have a conversation. No acute overnight issues. Per nursing staff this is his baseline. Potassium today was 3.3 and was replaced with a repeat potassium 3.6. Will continue to monitor closely. Cardiology is following and patient is to undergo an echo that is currently pending at this time. Will await report. Speech pathology is following as well and recommending a modified barium swallow that she will do in the morning. Case management and social welfare research worker following for possible placement upon discharge. Guarded prognosis. 01/04/2019 Patient sitting up in bed in no acute distress. Patient is more awake and alert today. Patient underwent a modified barium swallow today showing no evidence for aspiration. Cardiology is following. No acute overnight issues. Patient recent echo shows an EF of 30-35% with moderate to severely impaired left ventricular systolic function with a large pleural effusion. Patient is currently maintained on IV lasix at this time. Aldactone will be added to medications. Patient potassium was 3.3 today and being replaced. Will continue to monitor closely and repeat am labs. Case management and social work are following for possible placement at [facility] once discharged. 01/05/2019 Patient is sitting up in bed in no acute distress with no acute overnight issues. Cardiology is following. Patient is awake and alert and responding to questions and commands and remains pleasantly confused. Patient is currently oxygenating well on room air and will continue to monitor vital signs closely. Patient is maintained on IV Lasix and will continue at this time. Aldactone was added yesterday and tolerating well. Repeat potassium today is 3.8, creatinine is 1.00. Currently patient denies any chest pain, shortness of breath, or palpitations. Patient is afebrile. Patient denies any nausea or vomiting and is tolerating diet. 01/06/2019 Patient is sitting up in the chair in no acute distress with family at bedside. No acute overnight issues. Cardiology is following. Patient is being transitioned to oral Lasix and will continue to monitor vital signs and labs closely. Will repeat chest x-ray and labs in the morning. Patient is having some right groin pain with coughing and position changes and per family she states that he has been having this since he is been admitted to the hospital and she takes care of him every day at home and he has not complained of this pain in the right groin until now. Surgery will be consulted. Currently patient denies any chest pain or palpitations at this time. Patient states that his shortness of breath has improved and is currently maintaining oxygenation on room air. Potassium today was 3.4 will be replaced. Creatinine has improved and is 0.87. 01/07/2019 Patient is sitting up in the chair in no acute distress. No acute overnight issues. Cardiology and surgery are following. Patient's repeat chest x-ray today shows no real improvement from previous exam, cardiomegaly. Patient underwent a CAT scan of the abdomen today showing a confirmation of a right inguinal hernia that is small but containing pelvic ascites along with continued fluid overload and small left pleural effusion and right heart failure. When asking the patient about the pain in the right groin today he stated that he does not have any pain and was pointing to the left side although yesterday was the right side. Repeat potassium is 3.8 and creatinine is 0.99. REVIEW OF SYSTEMS: ENT: Reports diminished vision and hard of hearing. CARDIOVASCULAR: No reports of chest pain or palpitations. RESPIRATORY: No reports of shortness of breath or cough GI: No nausea, vomiting or diarrhea. : No dysuria or retention. NERVOUS SYSTEM: Reports weakness. HEMATOLOGY/ONCOLOGY: No history of anemia. ENDOCRINE: No history of diabetes or hypothyroidism. CONSTITUTIONAL: Cooperative, lethargic, no reports of fever Active Medications Apixaban (Eliquis) 5 mg PO BID MIKY Atorvastatin Calcium (Lipitor) 40 mg PO DAILY MIKY Azithromycin (Zithromax) 500 mg PO DAILY MIKY Furosemide (Lasix) 40 mg PO HS MIKY Furosemide (Lasix) 60 mg PO DAILY MIKY Hydralazine HCl (Apresoline) 75 mg PO TID MIKY Lisinopril (Zestril) 40 mg PO DAILY MIKY Metoprolol Tartrate (Lopressor) 25 mg PO BID MIKY Miscellaneous Information (Pneumonia Protocol Utilized) 1 each PO ONCE PRN Miscellaneous Information (Potassium Per Protocol) 1 each MISCELLANE DAILY PRN; Protocol Naloxone HCl (Narcan) 0.2 mg IV Q2M PRN Potassium Chloride (K-Dur 10) 10 meq PO DAILY MIKY Sertraline HCl (Zoloft) 25 mg PO DAILY MIKY Spironolactone (Aldactone) 25 mg PO DAILY MIKY Tamsulosin HCl (Flomax) 0.4 mg PO DAILY [facility] Objective - Vital Signs Vital signs: Vital Signs Temp 97.5 F L 01/07/19 07:10 Pulse 73 01/07/19 07:10 Resp 18 01/07/19 07:10 BP 183/87 01/07/19 07:10 Pulse Ox 95 01/07/19 07:10 Intake & Output 01/06/19 01/07/19 01/07/19 18:59 06:59 18:59 Weight 79 kg Other: Voiding Method Toilet Toilet Diaper Diaper # Voids 1 # Bowel Movements 1 - Exam Patient is sitting up in the chair comfortably, no acute distress, alert and oriented x2. Mildly confused. HEENT: Normocephalic. Neck is supple. Pupils reactive. Nostrils clear. Oral cavity is moist. Ears reveal no drainage. Small contusion noted to the left cheek from a previous fall Neck reveals no JVD, carotid bruits, or thyromegaly. CHEST EXAMINATION: Trachea is central. Symmetrical expansion. Bibasilar diminished air entry and mild crackles. No wheezing. Slightly improved CARDIAC: Normal S1, S2 with no gallops. Systolic murmur. Irregularly irregular rhythm. ABDOMEN: Soft. Bowel sounds normal. No organomegaly. No abdominal bruits. Extremities: 1+ bilateral pitting edema. No clubbing or cyanosis Neurologically awake, alert, oriented x2-3. Able to move extremities. Mild cognitive impairment. Skin: No rash or skin lesions. Psychiatric: Cooperative. Non-suicidal Musculoskeletal: No joint swelling or deformity. Normal range of motion. - Labs CBC & Chem 7: 01/05/19 07:07 01/07/19 08:48 Labs: Abnormal Lab Results - Last 24 Hours (Table) 01/06/19 Range/Units 07:42 Potassium 3.4 L (3.5-5.1) mmol/L BUN 34 H (9-20) mg/dL Microbiology - Last 24 Hours (Table) 01/02/19 18:00 Blood Culture - Preliminary Blood No Growth after 96 hours Assessment and Plan Assessment: Acute syncopal episode. Patient was found on the floor. Likely due to infection, uncontrolled HTN versus arrhythmia. Acute left lower lobe pneumonia Right groin pain possibility of an inguinal hernia; surgery is consulted Acute on chronic CHF. Ejection fraction is 30-35% Chronic atrial fibrillation on anticoagulation with eliquis. Hypertensive urgency on admission History of recent CVA 2 in 2019 COPD stable Previous history of smoking Recommendations and discussion: Recommend continue current medications, management, and symptomatic treatment. Cardiology and surgery are following. Patient was transitioned over to oral . Patient is diuresing well. Repeat potassium today is 3.8 and creatinine is 0.99. Patient's repeat chest x-ray shows no real improvement from previous. Patient had abdominal CT done confirming that he does have a right inguinal hernia and is also showing that it is small in nature is containing some pelvic ascites. CAT scan also showed fluid overload with moderate grade and small left pleural effusions along with mesenteric edema, small volume ascites, and anasarc a. Will continue to monitor closely. Case management and social welfare research worker following for assistance with placement at the [facility] once discharged. Further recommendations to follow. Guarded prognosis.
[2019-01-07] MEDS: FUROSEMIDE 40 MG TAB PO SCH (20:56)
[2019-01-08] MEDS: FUROSEMIDE 20 MG TAB PO SCH (08:56)
[2019-01-08] MEDS: POTASSIUM CHLORIDE ER 10 MEQ TAB.ER.PRT PO SCH (08:56)
[2019-01-08] MEDS: ATORVASTATIN 40 MG TAB PO SCH (08:56)
[2019-01-08] MEDS: METOPROLOL TARTRATE 25 MG TAB PO SCH ×2 (08:56→22:25)
[2019-01-08] MEDS: SERTRALINE 25 MG TAB PO SCH (08:56)
[2019-01-08] MEDS: LISINOPRIL 20 MG TAB PO SCH (08:56)
[2019-01-08] MEDS: hydrALAZINE HCL 25 MG TAB PO SCH ×3 (08:56→22:26)
[2019-01-08] MEDS: AZITHROMYCIN 500 MG TAB PO SCH (08:56)
[2019-01-08] MEDS: APIXABAN 5 MG TAB PO SCH ×2 (08:56→22:26)
[2019-01-08] MEDS: TAMSULOSIN 0.4 MG CAP.ER.24H PO SCH (08:56)
[2019-01-08] MEDS: SPIRONOLACTONE 25 MG TAB PO SCH (08:56)
--- NOTE | 2019-01-08 10:51 | P.DS ---
Providers Date of admission: 01/02/19 17:23 Attending physician: Angeline Fox Consults: 01/02/19 17:24 Consult Physician Urgent Consulting Provider: Max Juarez Consult Reason/Comments: syncope, htn Do you want consulting provider notified?: Yes 01/06/19 12:48 Consult Physician Stat Consulting Provider: Malinda Felder Consult Reason/Comments: right inguinal hernia/pain Do you want consulting provider notified?: Yes Primary care physician: Yohannes Meza DO Hospital Course: 78-year-old male with a known history of chronic atrial fibrillation on anticoagulation with a liquid is, COPD, hypertension, history of CVA 2 recently in 2019, history of carotid endarterectomy, currently at home by himself was brought to the hospital due to syncopal episode. According to his , patient was found on the floor twice, last night and this morning. Apparently patient has been on the floor for few hours. Patient denied any complaints of head injury or pain currently. Patient is somewhat poor historian. Denied any fever or chills. No cough is from production. No recent illnesses. Patient's is his caregiver. Denied any nausea vomiting or abdominal pain. No headache or dizziness or lightheadedness. Blood pressure 198/115 HR 68 on admission. Chest x-ray showed small pleural effusions. There is new left lower lobe pneumonia compared to oral exam. No obvious heart failure. EKG showed atrial fibrillation with controlled heart rate CT head showed no acute intracranial abnormality. Bilateral occipital infarcts which are old. Atrophic change. Chronic white matter ischemic change. Ethmoid and maxillary sinus mucosal disease. There are bilateral pleural effusions. Visualized portions of the lungs are clear. CT cervical spine showed no acute osseous lesion. Moderate degenerative change. Bilateral pleural effusions, greater on the right 01/03/2019 Patient is sitting up in the chair sleeping and somewhat arousable. Patient answers questions with yes and no but doesn't remain awake enough to have a conversation. No acute overnight issues. Per nursing staff this is his baseline. Potassium today was 3.3 and was replaced with a repeat potassium 3.6. Will continue to monitor closely. Cardiology is following and patient is to undergo an echo that is currently pending at this time. Will await report. Speech pathology is following as well and recommending a modified barium swallow that she will do in the morning. Case management and social sciences instructor following for possible placement upon discharge. Guarded prognosis. 01/04/2019 Patient sitting up in bed in no acute distress. Patient is more awake and alert today. Patient underwent a modified barium swallow today showing no evidence for aspiration. Cardiology is following. No acute overnight issues. Patient recent echo shows an EF of 30-35% with moderate to severely impaired left ventricular systolic function with a large pleural effusion. Patient is currently maintained on IV lasix at this time. Aldactone will be added to medications. Patient potassium was 3.3 today and being replaced. Will continue to monitor closely and repeat am labs. Case management and social work are following for possible placement at [facility] once discharged. 01/05/2019 Patient is sitting up in bed in no acute distress with no acute overnight issues. Cardiology is following. Patient is awake and alert and responding to questions and commands and remains pleasantly confused. Patient is currently oxygenating well on room air and will continue to monitor vital signs closely. Patient is maintained on IV Lasix and will continue at this time. Aldactone was added yesterday and tolerating well. Repeat potassium today is 3.8, creatinine is 1.00. Currently patient denies any chest pain, shortness of breath, or palpitations. Patient is afebrile. Patient denies any nausea or vomiting and is tolerating diet. 01/06/2019 Patient is sitting up in the chair in no acute distress with family at bedside. No acute overnight issues. Cardiology is following. Patient is being transitioned to oral Lasix and will continue to monitor vital signs and labs closely. Will repeat chest x-ray and labs in the morning. Patient is having some right groin pain with coughing and position changes and per family she states that he has been having this since he is been admitted to the hospital and she takes care of him every day at home and he has not complained of this pain in the right groin until now. Surgery will be consulted. Currently patient denies any chest pain or palpitations at this time. Patient states that his shortness of breath has improved and is currently maintaining oxygenation on room air. Potassium today was 3.4 will be replaced. Creatinine has improved and is 0.87. 01/07/2019 Patient is sitting up in the chair in no acute distress. No acute overnight issues. Cardiology and surgery are following. Patient's repeat chest x-ray today shows no real improvement from previous exam, cardiomegaly. Patient underwent a CAT scan of the abdomen today showing a confirmation of a right inguinal hernia that is small but containing pelvic ascites along with continued fluid overload and small left pleural effusion and right heart failure. When asking the patient about the pain in the right groin today he stated that he does not have any pain and was pointing to the left side although yesterday was the right side. Repeat potassium is 3.8 and creatinine is 0.99. 01/08/2019 Overnight events patient is clinically doing well will be discharged to subacute rehabilitation today patient's dose of Aldactone and Lasix was increased and patient will continue with the azithromycin for 3 more days for bronchitis. - Exam Patient is sitting up in the chair comfortably, no acute distress, alert and oriented x2-3. HEENT: Normocephalic. Neck is supple. Pupils reactive. Nostrils clear. Oral cavity is moist. Ears reveal no drainage. Small contusion noted to the left cheek from a previous fall Neck reveals no JVD, carotid bruits, or thyromegaly. CHEST EXAMINATION: Trachea is central. Symmetrical expansion. Bibasilar diminished air entry and mild crackles. No wheezing. Slightly improved CARDIAC: Normal S1, S2 with no gallops. Systolic murmur. Irregularly irregular rhythm. ABDOMEN: Soft. Bowel sounds normal. No organomegaly. No abdominal bruits. Extremities: No pedal edema. No clubbing or cyanosis Neurologically awake, alert, oriented x2-3. Able to move extremities. Mild cognitive impairment. Skin: No rash or skin lesions. Psychiatric: Cooperative. Non-suicidal Musculoskeletal: No joint swelling or deformity. Normal range of motion. -Congestive heart failure chronic systolic dysfunction with acute exacerbation presently euvolemic -Chronic A. fib on anti-correlation at the request -Hypertensive urgency blood pressure well controlled now -CVA -COPD -Right inguinal hernia -Syncope of admission extensive evaluation during this hospitalization -Bronchitis without any evidence of pneumonia or rule out pneumonia Plan - Discharge Summary Discharge Rx Participant: No New Discharge Prescriptions: New Spironolactone [Aldactone] 50 mg PO DAILY #30 tab hydrALAZINE HCL [Apresoline] 75 mg PO TID #90 tab Furosemide [Lasix] 60 mg PO DAILY #30 tab Azithromycin [Zithromax] 500 mg PO DAILY #3 tab Continue Sertraline HCl [Zoloft] 25 mg PO DAILY Metoprolol Tartrate [Lopressor] 25 mg PO BID Potassium Chloride ER [K-Dur 10] 10 meq PO DAILY Lisinopril 40 mg PO DAILY Furosemide [Lasix] 40 mg PO DAILY Tamsulosin [Flomax] 0.4 mg PO DAILY Atorvastatin [Lipitor] 40 mg PO DAILY Apixaban [Eliquis] 5 mg PO BID Magnesium/Calcium 1 tab PO DAILY Discontinued hydrALAZINE HCL [Apresoline] 25 mg PO Q8H Discharge Medication List Apixaban [Eliquis] 5 mg PO BID 01/02/19 [History] Atorvastatin [Lipitor] 40 mg PO DAILY 01/02/19 [History] Furosemide [Lasix] 40 mg PO DAILY 01/02/19 [History] Lisinopril 40 mg PO DAILY 01/02/19 [History] Magnesium/Calcium 1 tab PO DAILY 01/02/19 [History] Metoprolol Tartrate [Lopressor] 25 mg PO BID 01/02/19 [History] Potassium Chloride ER [K-Dur 10] 10 meq PO DAILY 01/02/19 [History] Sertraline HCl [Zoloft] 25 mg PO DAILY 01/02/19 [History] Tamsulosin [Flomax] 0.4 mg PO DAILY 01/02/19 [History] Azithromycin [Zithromax] 500 mg PO DAILY #3 tab 01/08/19 [Rx] Furosemide [Lasix] 60 mg PO DAILY #30 tab 01/08/19 [Rx] Spironolactone [Aldactone] 50 mg PO DAILY #30 tab 01/08/19 [Rx] hydrALAZINE HCL [Apresoline] 75 mg PO TID #90 tab 01/08/19 [Rx] Follow up Appointment(s)/Referral(s): Yohannes Meza DO [Primary Care Provider] - 1-2 days Malinda Felder MD [STAFF PHYSICIAN] - As Needed
[2019-01-08] MEDS: FUROSEMIDE 40 MG TAB PO SCH (22:26)
[2019-01-09] MEDS: APIXABAN 5 MG TAB PO SCH ×2 (08:46→21:38)
[2019-01-09] MEDS: ATORVASTATIN 40 MG TAB PO SCH (08:46)
[2019-01-09] MEDS: METOPROLOL TARTRATE 25 MG TAB PO SCH ×2 (08:47→21:38)
[2019-01-09] MEDS: hydrALAZINE HCL 25 MG TAB PO SCH ×3 (08:47→21:38)
[2019-01-09] MEDS: FUROSEMIDE 20 MG TAB PO SCH (08:47)
[2019-01-09] MEDS: LISINOPRIL 20 MG TAB PO SCH (08:47)
[2019-01-09] MEDS: AZITHROMYCIN 500 MG TAB PO SCH (08:47)
[2019-01-09] MEDS: SPIRONOLACTONE 25 MG TAB PO SCH (08:47)
[2019-01-09] MEDS: SERTRALINE 25 MG TAB PO SCH (08:47)
[2019-01-09] MEDS: TAMSULOSIN 0.4 MG CAP.ER.24H PO SCH (08:47)
[2019-01-09] MEDS: POTASSIUM CHLORIDE ER 10 MEQ TAB.ER.PRT PO SCH (08:47)
--- NOTE | 2019-01-09 09:26 | P.PN ---
Subjective 78-year-old male with a known history of chronic atrial fibrillation on anticoagulation with a liquid is, COPD, hypertension, history of CVA 2 recently in 2019, history of carotid endarterectomy, currently at home by himself was brought to the hospital due to syncopal episode. According to his , patient was found on the floor twice, last night and this morning. Apparently patient has been on the floor for few hours. Patient denied any complaints of head injury or pain currently. Patient is somewhat poor historian. Denied any fever or chills. No cough is from production. No recent illnesses. Patient's is his caregiver. Denied any nausea vomiting or abdominal pain. No headache or dizziness or lightheadedness. Blood pressure 198/115 HR 68 on admission. Chest x-ray showed small pleural effusions. There is new left lower lobe pneumonia compared to oral exam. No obvious heart failure. EKG showed atrial fibrillation with controlled heart rate CT head showed no acute intracranial abnormality. Bilateral occipital infarcts which are old. Atrophic change. Chronic white matter ischemic change. Ethmoid and maxillary sinus mucosal disease. There are bilateral pleural effusions. Visualized portions of the lungs are clear. CT cervical spine showed no acute osseous lesion. Moderate degenerative change. Bilateral pleural effusions, greater on the right 01/03/2019 Patient is sitting up in the chair sleeping and somewhat arousable. Patient answers questions with yes and no but doesn't remain awake enough to have a conversation. No acute overnight issues. Per nursing staff this is his baseline. Potassium today was 3.3 and was replaced with a repeat potassium 3.6. Will continue to monitor closely. Cardiology is following and patient is to undergo an echo that is currently pending at this time. Will await report. Speech pathology is following as well and recommending a modified barium swallow that she will do in the morning. Case management and social insurance administrator following for possible placement upon discharge. Guarded prognosis. 01/04/2019 Patient sitting up in bed in no acute distress. Patient is more awake and alert today. Patient underwent a modified barium swallow today showing no evidence for aspiration. Cardiology is following. No acute overnight issues. Patient recent echo shows an EF of 30-35% with moderate to severely impaired left ventricular systolic function with a large pleural effusion. Patient is currently maintained on IV lasix at this time. Aldactone will be added to medications. Patient potassium was 3.3 today and being replaced. Will continue to monitor closely and repeat am labs. Case management and social work are following for possible placement at [facility] once discharged. 01/05/2019 Patient is sitting up in bed in no acute distress with no acute overnight issues. Cardiology is following. Patient is awake and alert and responding to questions and commands and remains pleasantly confused. Patient is currently oxygenating well on room air and will continue to monitor vital signs closely. Patient is maintained on IV Lasix and will continue at this time. Aldactone was added yesterday and tolerating well. Repeat potassium today is 3.8, creatinine is 1.00. Currently patient denies any chest pain, shortness of breath, or palpitations. Patient is afebrile. Patient denies any nausea or vomiting and is tolerating diet. 01/06/2019 Patient is sitting up in the chair in no acute distress with family at bedside. No acute overnight issues. Cardiology is following. Patient is being transitioned to oral Lasix and will continue to monitor vital signs and labs closely. Will repeat chest x-ray and labs in the morning. Patient is having some right groin pain with coughing and position changes and per family she states that he has been having this since he is been admitted to the hospital and she takes care of him every day at home and he has not complained of this pain in the right groin until now. Surgery will be consulted. Currently patient denies any chest pain or palpitations at this time. Patient states that his shortness of breath has improved and is currently maintaining oxygenation on room air. Potassium today was 3.4 will be replaced. Creatinine has improved and is 0.87. 01/07/2019 Patient is sitting up in the chair in no acute distress. No acute overnight issues. Cardiology and surgery are following. Patient's repeat chest x-ray today shows no real improvement from previous exam, cardiomegaly. Patient underwent a CAT scan of the abdomen today showing a confirmation of a right inguinal hernia that is small but containing pelvic ascites along with continued fluid overload and small left pleural effusion and right heart failure. When asking the patient about the pain in the right groin today he stated that he does not have any pain and was pointing to the left side although yesterday was the right side. Repeat potassium is 3.8 and creatinine is 0.99. 01/08/2019 Overnight events patient is clinically doing well will be discharged to subacute rehabilitation today patient's dose of Aldactone and Lasix was increased and patient will continue with the azithromycin for 3 more days for bronchitis. 01/09/2019 Patient is fairly stable respiratory status is stable no overnight events jaylin ent is awaiting disposition to subacute rehabilitation on Thursday Constitutional: Denied any fatigue denied any fever. Cardio vascular: denied any chest pain, palpitations Gastrointestinal denied any nausea vomiting Pulmonary: Denied any shortness of breath cough Neurologic denied any new focal deficits All inpatient medications were reviewed and appropriate changes in these medications as dictated in the interval history and assessment and plan. Objective - Vital Signs Vital signs: Vital Signs Temp 97.1 F L 01/09/19 05:00 Pulse 72 01/09/19 05:00 Resp 16 01/09/19 05:00 BP 154/72 01/09/19 05:00 Pulse Ox 91 L 01/09/19 05:00 Intake & Output 01/08/19 01/09/19 01/09/19 18:59 06:59 18:59 Weight 73 kg Other: Voiding Method Toilet Diaper Toilet Diaper Incontinent Diaper Incontinent # Voids 2 # Bowel Movements 1 - Exam Patient is sitting up in the chair comfortably, no acute distress, alert and oriented x2-3. HEENT: Normocephalic. Neck is supple. Pupils reactive. Nostrils clear. Oral cavity is moist. Ears reveal no drainage. Small contusion noted to the left cheek from a previous fall Neck reveals no JVD, carotid bruits, or thyromegaly. CHEST EXAMINATION: Trachea is central. Symmetrical expansion. Bibasilar diminished air entry and mild crackles. No wheezing. Slightly improved CARDIAC: Normal S1, S2 with no gallops. Systolic murmur. Irregularly irregular rhythm. ABDOMEN: Soft. Bowel sounds normal. No organomegaly. No abdominal bruits. Extremities: No pedal edema. No clubbing or cyanosis Neurologically awake, alert, oriented x2-3. Able to move extremities. Mild cognitive impairment. Skin: No rash or skin lesions. Psychiatric: Cooperative. Non-suicidal Musculoskeletal: No joint swelling or deformity. Normal range of motion. - Labs CBC & Chem 7: 01/05/19 07:07 01/07/19 08:48 Labs: Microbiology - Last 24 Hours (Table) 01/02/19 18:00 Blood Culture - Final Blood No Growth after 144 hours Assessment and Plan Plan: -Congestive heart failure chronic systolic dysfunction with acute exacerbation presently euvolemic -Chronic A. fib on anti-correlation at the request -Hypertensive urgency blood pressure well controlled now -CVA -COPD -Right inguinal hernia -Syncope of admission extensive evaluation during this hospitalization -Bronchitis without any evidence of pneumonia or rule out pneumonia
[2019-01-09 21:34] VITALS: RESP 16
[2019-01-09] MEDS: FUROSEMIDE 40 MG TAB PO SCH (21:38)
[2019-01-10 05:27] VITALS: BP 135/65; PULSE 54; TEMP 96.8
[2019-01-10] MEDS: FUROSEMIDE 20 MG TAB PO SCH (07:33)
[2019-01-10] MEDS: SPIRONOLACTONE 25 MG TAB PO SCH (07:33)
[2019-01-10] MEDS: hydrALAZINE HCL 25 MG TAB PO SCH (07:33)
[2019-01-10] MEDS: ATORVASTATIN 40 MG TAB PO SCH (07:34)
[2019-01-10] MEDS: AZITHROMYCIN 500 MG TAB PO SCH (07:34)
[2019-01-10] MEDS: SERTRALINE 25 MG TAB PO SCH (07:34)
[2019-01-10] MEDS: LISINOPRIL 20 MG TAB PO SCH (07:34)
[2019-01-10] MEDS: POTASSIUM CHLORIDE ER 10 MEQ TAB.ER.PRT PO SCH (07:34)
[2019-01-10] MEDS: METOPROLOL TARTRATE 25 MG TAB PO SCH (07:34)
[2019-01-10] MEDS: TAMSULOSIN 0.4 MG CAP.ER.24H PO SCH (07:34)
[2019-01-10] MEDS: APIXABAN 5 MG TAB PO SCH (07:35)
--- NOTE | 2019-01-10 09:11 | P.DS ---
Providers Date of admission: 01/02/19 17:23 Expected date of discharge: 01/10/19 Attending physician: Angeline Fox Consults: 01/02/19 17:24 Consult Physician Urgent Consulting Provider: Max Juarez Consult Reason/Comments: syncope, htn Do you want consulting provider notified?: Yes 01/06/19 12:48 Consult Physician Stat Consulting Provider: Malinda Felder Consult Reason/Comments: right inguinal hernia/pain Do you want consulting provider notified?: Yes Primary care physician: Yohannes Meza, Hospital Course: Final diagnosis -Congestive heart failure chronic systolic dysfunction with acute exacerbation -Chronic A. fib on anti-correlation Eliquis -Hypertensive urgency -CVA -COPD -Right inguinal hernia -Syncope on admission -Bronchitis without any evidence of pneumonia or rule out pneumonia Discharge disposition Patient is being discharged in a stable condition with guarded prognosis to [facility] for continued PT/OT therapy. Patient has an event monitor and will follow-up with cardiology in approximately 28 days. Total time taken is 35 minutes. History of present illness 78-year-old male with a known history of chronic atrial fibrillation on anticoagulation with a liquid is, COPD, hypertension, history of CVA 2 recently in 2019, history of carotid endarterectomy, currently at home by himself was brought to the hospital due to syncopal episode. According to his , patient was found on the floor twice, last night and this morning. Apparently patient has been on the floor for few hours. Patient denied any complaints of head injury or pain currently. Patient is somewhat poor historian. Denied any fever or chills. No cough is from production. No recent illnesses. Patient's is his caregiver. Denied any nausea vomiting or abdominal pain. No headache or dizziness or lightheadedness. Blood pressure 198/115 HR 68 on admission. Chest x-ray showed small pleural effusions. There is new left lower lobe pneumonia compared to oral exam. No obvious heart failure. EKG showed atrial fibrillation with controlled heart rate CT head showed no acute intracranial abnormality. Bilateral occipital infarcts which are old. Atrophic change. Chronic white matter ischemic change. Ethmoid and maxillary sinus mucosal disease. There are bilateral pleural effusions. Visualized portions of the lungs are clear. CT cervical spine showed no acute osseous lesion. Moderate degenerative change. Bilateral pleural effusions, greater on the right 01/03/2019 Patient is sitting up in the chair sleeping and somewhat arousable. Patient answers questions with yes and no but doesn't remain awake enough to have a conversation. No acute overnight issues. Per nursing staff this is his baseline. Potassium today was 3.3 and was replaced with a repeat potassium 3.6. Will continue to monitor closely. Cardiology is following and patient is to undergo an echo that is currently pending at this time. Will await report. Speech pathology is following as well and recommending a modified barium swallow that she will do in the morning. Case management and social service coordinator following for possible placement upon discharge. Guarded prognosis. 01/04/2019 Patient sitting up in bed in no acute distress. Patient is more awake and alert today. Patient underwent a modified barium swallow today showing no evidence for aspiration. Cardiology is following. No acute overnight issues. Patient recent echo shows an EF of 30-35% with moderate to severely impaired left ventricular systolic function with a large pleural effusion. Patient is currently maintained on IV lasix at this time. Aldactone will be added to medications. Patient potassium was 3.3 today and being replaced. Will continue to monitor closely and repeat am labs. Case management and social work are following for possible placement at [facility] once discharged. 01/05/2019 Patient is sitting up in bed in no acute distress with no acute overnight issues. Cardiology is following. Patient is awake and alert and responding to questions and commands and remains pleasantly confused. Patient is currently oxygenating well on room air and will continue to monitor vital signs closely. Patient is maintained on IV Lasix and will continue at this time. Aldactone was added yesterday and tolerating well. Repeat potassium today is 3.8, creatinine is 1.00. Currently patient denies any chest pain, shortness of breath, or palpitations. Patient is afebrile. Patient denies any nausea or vomiting and is tolerating diet. 01/06/2019 Patient is sitting up in the chair in no acute distress with family at bedside. No acute overnight issues. Cardiology is following. Patient is being transitioned to oral Lasix and will continue to monitor vital signs and labs closely. Will repeat chest x-ray and labs in the morning. Patient is having some right groin pain with coughing and position changes and per family she states that he has been having this since he is been admitted to the hospital and she takes care of him every day at home and he has not complained of this pain in the right groin until now. Surgery will be consulted. Currently patient denies any chest pain or palpitations at this time. Patient states that his shortness of breath has improved and is currently maintaining oxygenation on room air. Potassium today was 3.4 will be replaced. Creatinine has improved and is 0.87. 01/07/2019 Patient is sitting up in the chair in no acute distress. No acute overnight issues. Cardiology and surgery are following. Patient's repeat chest x-ray today shows no real improvement from previous exam, cardiomegaly. Patient underwent a CAT scan of the abdomen today showing a confirmation of a right inguinal hernia that is small but containing pelvic ascites along with continued fluid overload and small left pleural effusion and right heart failure. When asking the patient about the pain in the right groin today he stated that he does not have any pain and was pointing to the left side although yesterday was the right side. Repeat potassium is 3.8 and creatinine is 0.99. 01/08/2019 Overnight events patient is clinically doing well will be discharged to subacute rehabilitation today patient's dose of Aldactone and Lasix was increased and patient will continue with the azithromycin for 3 more days for bronchitis. 01/09/2019 Patient is sitting up in the chair in no acute distress with no acute overnight issues. Patient will be discharged today to [facility] subacute rehab for continued PT/OT therapy. Patient will continue antibiotic therapy for the next 3 days and then may be discontinued. - Exam Patient is sitting up in the chair comfortably, no acute distress, alert and oriented x2-3. Vital signs are stable. Temp is 96.8F, pulse is 54, respirations are 16, blood pressure is 135/65, oxygen saturation is 94% on room air. HEENT: Normocephalic. Neck is supple. Pupils reactive. Nostrils clear. Oral cavity is moist. Ears reveal no drainage. Small contusion noted to the left cheek from a previous fall Neck reveals no JVD, carotid bruits, or thyromegaly. CHEST EXAMINATION: Trachea is central. Symmetrical expansion. Bibasilar diminished air entry and mild crackles. No wheezing. Slightly improved CARDIAC: Normal S1, S2 with no gallops. Systolic murmur. Irregularly irregular rhythm. ABDOMEN: Soft. Bowel sounds normal. No organomegaly. No abdominal bruits. Extremities: No pedal edema. No clubbing or cyanosis Neurologically awake, alert, oriented x2-3. Able to move extremities. Mild cognitive impairment. Skin: No rash or skin lesions. Psychiatric: Cooperative. Non-suicidal Musculoskeletal: No joint swelling or deformity. Normal range of motion. Please refer to medication reconciliation sheet for a list of medications. Patient Condition at Discharge: Stable Plan - Discharge Summary Discharge Rx Participant: No New Discharge Prescriptions: New Spironolactone [Aldactone] 50 mg PO DAILY #30 tab hydrALAZINE HCL [Apresoline] 75 mg PO TID #90 tab Furosemide [Lasix] 60 mg PO DAILY #30 tab Azithromycin [Zithromax] 500 mg PO DAILY #3 tab Continue Sertraline HCl [Zoloft] 25 mg PO DAILY Metoprolol Tartrate [Lopressor] 25 mg PO BID Potassium Chloride ER [K-Dur 10] 10 meq PO DAILY Lisinopril 40 mg PO DAILY Furosemide [Lasix] 40 mg PO DAILY Tamsulosin [Flomax] 0.4 mg PO DAILY Atorvastatin [Lipitor] 40 mg PO DAILY Apixaban [Eliquis] 5 mg PO BID Magnesium/Calcium 1 tab PO DAILY Discontinued hydrALAZINE HCL [Apresoline] 25 mg PO Q8H Discharge Medication List Apixaban [Eliquis] 5 mg PO BID 01/02/19 [History] Atorvastatin [Lipitor] 40 mg PO DAILY 01/02/19 [History] Furosemide [Lasix] 40 mg PO DAILY 01/02/19 [History] Lisinopril 40 mg PO DAILY 01/02/19 [History] Magnesium/Calcium 1 tab PO DAILY 01/02/19 [History] Metoprolol Tartrate [Lopressor] 25 mg PO BID 01/02/19 [History] Potassium Chloride ER [K-Dur 10] 10 meq PO DAILY 01/02/19 [History] Sertraline HCl [Zoloft] 25 mg PO DAILY 01/02/19 [History] Tamsulosin [Flomax] 0.4 mg PO DAILY 01/02/19 [History] Azithromycin [Zithromax] 500 mg PO DAILY #3 tab 01/08/19 [Rx] Furosemide [Lasix] 60 mg PO DAILY #30 tab 01/08/19 [Rx] Spironolactone [Aldactone] 50 mg PO DAILY #30 tab 01/08/19 [Rx] hydrALAZINE HCL [Apresoline] 75 mg PO TID #90 tab 01/08/19 [Rx] Follow up Appointment(s)/Referral(s): Yohannes Meza DO [Primary Care Provider] - 1-2 days Malinda Felder MD [STAFF PHYSICIAN] - As Needed Justyna Crenshaw MD [REFERRING] - 4 Weeks Activity/Diet/Wound Care/Special Instructions: Patient is going to [facility] activity as tolerated continue current diet with aspiration precautions follow up with primary care provider upon discharge follow up with cardiology in 30 days with event monitor Discharge Disposition: HOME SELF-CARE
[2019-01-10 09:53] LABS: Calcium 8.9 mg/dL (8.4-10.2); Potassium 4.2 mmol/L (3.5-5.1)
== END 2019-01-10 13:15 | DRG 292 ==
LOC: EC 11:40 → 3SCARD 17:23 → 3NMEDONC 01-04 22:57
PROVIDERS: ADMIT Internal Medicine; ATTEND Internal Medicine
DX: I11.0 Hypertensive heart disease with heart failure (principal); I48.19 Other persistent atrial fibrillation; J44.0 Chronic obstructive pulmonary disease with (acute) lower respiratory infection; I50.23 Acute on chronic systolic (congestive) heart failure; I50.82 Biventricular heart failure; I27.29 Other secondary pulmonary hypertension; I07.1 Rheumatic tricuspid insufficiency; I73.9 Peripheral vascular disease, unspecified; J40 Bronchitis, not specified as acute or chronic; E78.5 Hyperlipidemia, unspecified; G31.84 Mild cognitive impairment of uncertain or unknown etiology; I16.0 Hypertensive urgency; I49.3 Ventricular premature depolarization; K40.90 Unilateral inguinal hernia, without obstruction or gangrene, not specified as recurrent; R32 Unspecified urinary incontinence; R55 Syncope and collapse; Z79.01 Long term (current) use of anticoagulants; Z79.899 Other long term (current) drug therapy; Z86.73 Personal history of transient ischemic attack (TIA), and cerebral infarction without residual deficits; Z87.891 Personal history of nicotine dependence; Z82.49 Family history of ischemic heart disease and other diseases of the circulatory system
CPT/HCPCS: 36415; 70450; 71045; 71046; 72125; 74177; 74230; 80048; 80053; 81001; 82550; 83735; 83880; 84132; 84484; 85025; 85610; 85730; 87040; 93005; 93270; 93306; 94760; 96365; 96375; 99285

== ENCOUNTER → 2019-04-06 | Outpatient (CLI) | payer MEDICARE, BC ==
[2019-04-06 18:05] LABS: Anisocytosis Moderate; HCT 37.5 % (39.0-53.0); MCH 27.2 pg (25.0-35.0); MCHC 31.9 g/dL (31.0-37.0); MCV 85.3 fL (80.0-100.0); Mean Platelet Volume 7.7; Microcytosis Slight; Platelet Count 218 k/uL (150-450); RDW 22.2 % (11.5-15.5); WBC 11.9 k/uL (3.8-10.6)
[2019-04-07 03:01] LABS: African American GFR (CKD) 47.1 (60.0-200.0); Anion Gap 9.9 mmol/L (4.00-12.00); BUN/Creat Ratio 39.38 Ratio (12.00-20.00); Calcium 9.5 mg/dL (8.7-10.3); Carbon Dioxide 26.1 mmol/L (21.6-31.8); Non-African American GFR(CKD) 40.7 (60.0-200.0); Potassium 5.9 mmol/L (3.5-5.5)
== END ==
LOC: LABWHC1 17:09
PROVIDERS: ATTEND Internal Medicine Interventional Cardiology
DX: I48.91 Unspecified atrial fibrillation (principal); I50.9 Heart failure, unspecified
CPT/HCPCS: 36415; 80048; 85027

== ENCOUNTER 2019-12-23 06:56 | Day surgery (SDC) | payer MEDICARE, BC ==
[2019-12-19 15:00] VITALS: BMI 25.9
[~2019-12-23 06:56] MED LIST: ALPRAZolam 0.25 MG TAB PO PRN; ALPRAZolam 0.5 MG TAB PO PRN; ASPIRIN 325 MG TAB PO STA; ATORVASTATIN 80 MG TAB PO STA; NITROGLYCERIN SL TABS 0.4 MG TAB SUBLINGUAL PRN; SODIUM CHLORIDE 0.9% 1,000 ML in EMPTY BAG 1 BAG IV ONE
[2019-12-23] MEDS ORDERED: SODIUM CHLORIDE 0.9% 1,000 ML IV ONE (08:09)
[2019-12-23] MEDS ORDERED: LIDOCAINE 1% INJ 10MG/ML (20 ML MDV) ONE (09:11)
[2019-12-23] MEDS ORDERED: NITROGLYCERIN SL TABS 0.4 MG TAB SUBLINGUAL ONE ×2 (09:27→09:30)
[2019-12-23] MEDS ORDERED: LIDOCAINE 1% INJ 10MG/ML (20 ML MDV) SQ ONE (09:31)
[2019-12-23] MEDS ORDERED: MIDAZOLAM 2 MG/2 ML VIAL IV ONE (09:31)
[2019-12-23] MEDS ORDERED: HYDROmorphone 0.5 MG/0.5 ML SYRINGE IVP ONE (09:41)
[2019-12-23] MEDS ORDERED: IOPAMIDOL-370 100ML BTL INJ ONE (09:56)
[2019-12-23] MEDS: SODIUM CHLORIDE 0.9% 1,000 ML IV SCH (11:00)
[2019-12-23] MEDS ORDERED: amLODIPine 5 MG TAB PO STA (11:25)
[2019-12-23] MEDS ORDERED: ISOSORBIDE MONONITRATE ER 30 MG TAB.ER.24H PO STA (11:25)
--- NOTE | 2019-12-23 12:07 | CC ---
CARDIAC CATHETERIZATION REPORT DATE OF SERVICE: December 23, 2019. PROCEDURE: Left heart catheterization and coronary angiography. PERFORMED BY: Dr. Yolie Macias. SEDATION: Moderate conscious sedation time was 23 minutes. The patient was administered Versed. Oxygen saturation, hemodynamics and EKG were monitored closely. CLINICAL INFORMATION: Mr. Dmitri Glez is a 79-year-old gentleman with a history of chronic atrial fibrillation, diastolic heart failure, ejection fraction in the 45% range with episode of heart failure and hospitalization. Because of significant episode of chest tightness, pressure, he was advised coronary angiography after due discussion. He has chronic kidney disease. He was well hydrated orally and also intravenously, brought in for the procedure. Very cautious contrast administration was done. He received no more than 55-60 mL of contrast. PROCEDURE NOTE: Under local anesthesia and strict aseptic precautions, a 6-Yoruba introducer was placed in the right femoral artery. There was a lot of calcification. I had difficulty. I used a regular needle to gain access through the calcified artery. A 6-Yoruba introducer was placed. Standard Argelia catheters were used to perform coronary angiography and the same right catheter was used to check LV pressure but LV gram was not performed. The sheath was taken out and manual compression used to secure hemostasis and Femstop applied and he was sent to the room in stable condition. Results were discussed with the patient and his sister. Medical therapy was advised with risk factor modification. We will resume Eliquis tomorrow. He will be discharged tomorrow morning after hydrating him overnight and checking a BUN and creatinine. CARDIAC CATHETERIZATION FINDINGS: Left ventricular end-diastolic pressure was about 10 mmHg without any gradient across the aortic valve. CORONARY ANGIOGRAPHY FINDINGS: RIGHT CORONARY ARTERY: Large dominant vessel heavily calcified throughout in the midportion. There is 35-40 percent eccentric narrowing and then it bifurcates into a smaller PLV larger PDA both of which supply a sizable amount of myocardium. No significant disease other than minor diffuse irregularity. The PDA has about a 50% eccentric calcified lesion just after it comes off from the main RCA, best seen in the RODRIGUEZ projection. LEFT MAIN CORONARY ARTERY: Short, patent vessel, free of significant disease, has mild- to-moderate calcification bifurcates into LAD and circumflex. LEFT ANTERIOR DESCENDING CORONARY ARTERY: Good caliber vessel extends along the antral wall, gives off 2 large diagonal branches very proximally. Both of these have about a 40% narrowing and the LAD has another 40% narrowing. There is no significant disease, but the entire LAD system is heavily calcified. LEFT POSTERIOR CIRCUMFLEX CORONARY ARTERY is technically nondominant yet large caliber vessel, gives off a good-sized obtuse marginal that runs laterally, supplies a sizable amount of myocardium. Distal PLV branch of the PDA branch seems to come off from the circumflex as well and this branch is free of significant disease, has mild to moderate calcification. Diffuse irregularities, no more than 30-35 percent. Nondominant yet good caliber, good distribution circumflex, gives off obtuse marginal branch that runs laterally 2 branches, no significant disease. LEFT VENTRICULOGRAM: Was not performed. 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 50% disease in the PDA branch of RCA of the right, 30-45 percent narrowing in the diagonal branches as well as in the circumflex branches. LAD has no more than 40% narrowing. LV pressures are normal and there is no gradient across aortic valve. RECOMMENDATIONS: Findings were discussed with the patient and his sister. I am recommending continued medical therapy with risk factor modification. No other aggressive intervention is necessary. Findings were reviewed with the patient and . We will keep him overnight for hydration. MMODL / IJN: [id number] /
[2019-12-23] MEDS: FUROSEMIDE 20 MG TAB PO SCH (15:41)
[2019-12-23] MEDS: hydrALAZINE HCL 25 MG TAB PO SCH (21:34)
[2019-12-23] MEDS: SPIRONOLACTONE 25 MG TAB PO SCH (21:34)
[2019-12-23] MEDS: METOPROLOL TARTRATE 12.5 MG TAB PO SCH (23:06)
[2019-12-24 00:46] VITALS: RESP 16
[2019-12-24] MEDS: SODIUM CHLORIDE 0.9% 1,000 ML IV SCH (02:35)
[2019-12-24 07:38] LABS: HCT 35.1 % (39.0-53.0); HGB 10.9 gm/dL (13.0-17.5); MCH 28.8 pg (25.0-35.0); MCHC 31.2 g/dL (31.0-37.0); MCV 92.3 fL (80.0-100.0); Mean Platelet Volume 7.4; Platelet Count 202 k/uL (150-450); RDW 15.1 % (11.5-15.5); WBC 9.5 k/uL (3.8-10.6)
[2019-12-24] MEDS: SPIRONOLACTONE 25 MG TAB PO SCH (08:53)
[2019-12-24] MEDS: FUROSEMIDE 20 MG TAB PO SCH (08:54)
[2019-12-24] MEDS: hydrALAZINE HCL 25 MG TAB PO SCH (08:54)
[2019-12-24] MEDS: METOPROLOL TARTRATE 12.5 MG TAB PO SCH (08:54)
[2019-12-24] MEDS ORDERED: POTASSIUM CHLORIDE ER 20 MEQ TAB.ER PO SCH (09:00)
[2019-12-24] MEDS ORDERED: SERTRALINE 25 MG TAB PO SCH (09:00)
[2019-12-24] MEDS ORDERED: TAMSULOSIN 0.4 MG CAP.ER.24H PO SCH (09:00)
[2019-12-24] MEDS ORDERED: ASPIRIN 81 MG PO SCH (09:00)
[2019-12-24] MEDS ORDERED: APIXABAN 5 MG TAB PO SCH (09:00)
[2019-12-24 09:44] VITALS: BP 145/58; PULSE 65; TEMP 98.1
--- NOTE | 2019-12-24 15:16 | P.DS ---
Providers Expected date of discharge: 12/24/19 Attending physician: Deb Macias Primary care physician: Jan Asher DO Hospital Course: This is a 79-year-old male patient of Dr. LIU Macias with past medical history of chronic atrial fibrillation, diastolic heart failure with ejection fraction of 45%, episode of heart failure, chronic kidney disease. Patient has had episode of chest tightness and pressure and he was advised to undergo coronary angiography. He was found to have a code dominant system with PDA coming from both branches. 50% disease in the PDA branch of RCA of the right, 30-45% narrowing in the diagonal branches as well as a circumflex branches. LAD has no more than 40% narrowing. LV pressures are normal with no gradient across aortic valve. Recommend medical therapy and risk factor modifications. Patient was monitored overnight and did not have any events. Today, patient has no chest pain or shortness of breath. He has been actively walking throughout the department and will be discharged home today in stable condition. Discharge diagnoses: Mild coronary artery disease Chronic atrial fibrillation Chronic diastolic heart failure Chronic kidney disease Nurse practitioner note has been reviewed, I agree with documented findings and plan of care. Patient was seen and examined. Plan - Discharge Summary Discharge Rx Participant: No New Discharge Prescriptions: Continue Sertraline HCl [Zoloft] 25 mg PO DAILY Metoprolol Tartrate [Lopressor] 12.5 mg PO BID Tamsulosin [Flomax] 0.4 mg PO DAILY Apixaban [Eliquis] 5 mg PO BID Furosemide [Lasix] 20 mg PO BID hydrALAZINE HCL [Apresoline] 75 mg PO BID Potassium Chloride [K-Tab ER] 20 meq PO DAILY Spironolactone [Aldactone] 12.5 mg PO BID Aspirin [Adult Low Dose Aspirin EC] 81 mg PO DAILY Discharge Medication List Apixaban [Eliquis] 5 mg PO BID 01/02/19 [History] Metoprolol Tartrate [Lopressor] 12.5 mg PO BID 01/02/19 [History] Sertraline HCl [Zoloft] 25 mg PO DAILY 01/02/19 [History] Tamsulosin [Flomax] 0.4 mg PO DAILY 01/02/19 [History] Aspirin [Adult Low Dose Aspirin EC] 81 mg PO DAILY 12/19/19 [History] Furosemide [Lasix] 20 mg PO BID 12/19/19 [History] Potassium Chloride [K-Tab ER] 20 meq PO DAILY 12/19/19 [History] Spironolactone [Aldactone] 12.5 mg PO BID 12/19/19 [History] hydrALAZINE HCL [Apresoline] 75 mg PO BID 12/19/19 [History] Follow up Appointment(s)/Referral(s): Deb Macias MD [STAFF PHYSICIAN] - 12/30/19 2:30 pm () Patient Instructions/Handouts: Left Heart Catheterization (DC), After Radial Heart Catheterization (GEN), Procedural Sedation (ED) Discharge Disposition: HOME SELF-CARE
== END 2019-12-24 11:45 | disposition home or self-care (01) ==
LOC: CATHCVL 06:56 → 3NCARDOBS 09:51 → CATHCVL 12-24 11:45
PROVIDERS: ATTEND Internal Medicine Interventional Cardiology
DX: I25.110 Atherosclerotic heart disease of native coronary artery with unstable angina pectoris (principal); I48.20 Chronic atrial fibrillation, unspecified; I13.0 Hypertensive heart and chronic kidney disease with heart failure and stage 1 through stage 4 chronic kidney disease, or unspecified chronic kidney disease; I50.32 Chronic diastolic (congestive) heart failure; N18.9 Chronic kidney disease, unspecified; E66.3 Overweight; Z79.01 Long term (current) use of anticoagulants; Z79.82 Long term (current) use of aspirin; Z79.899 Other long term (current) drug therapy; Z68.27 Body mass index [BMI] 27.0-27.9, adult
CPT/HCPCS: 93458; 80048; 85027; C1769 ×3; C1894; J2250; J2001; J1170; Q9967